=== PATIENT | female | born 1985 | race Caucasian/White ===

== ENCOUNTER 2020-07-13 08:38 | Outpatient (REF) | payer OTHER, SELFPAY ==
[2020-07-13 11:17] LABS: HBc Num1 0.08 S/CO (0.00-0.79); Hepatitis B Core Antibody Nonreactive (Nonreactive)
[2020-07-13 11:18] LABS: HIV AB/AG Nonreactive (Nonreactive); HIV Num 1 0.07 S/CO (0.00-0.99); ~HepC Num1 0.07 S/CO (0.00-0.79); ~Hepatitis C Antibody Nonreactive (Nonreactive)
[2020-07-13 11:20] LABS: Syphilis Screen Nonreactive (Nonreactive)
[2020-07-13 13:28] LABS: CT PCR NOT DETECTED (Not Detect.); NG PCR NOT DETECTED (Not Detect.)
[2020-07-14 09:32] LABS: BV Int Neg Control Negative (Negative); BV Int Pos Control Positive (Positive)
== END 2020-07-13 08:39 | disposition home or self-care (01) ==
LOC: HO.LAB 08:38
PROVIDERS: Visit Provider Advanced Practice Midwife
DX: Z20.2 Contact with and (suspected) exposure to infections with a predominantly sexual mode of transmission (principal); Z01.419 Encounter for gynecological examination (general) (routine) without abnormal findings
CPT/HCPCS: 86704; 86780; 86803; 87389; 87480; 87491; 87510; 87591; 87660

== ENCOUNTER → 2020-10-12 10:23 | Outpatient (BNVA) | payer OTHER, SELFPAY | PROVIDERS: Visit Provider Advanced Practice Midwife | DX: N63.0 Unspecified lump in unspecified breast (principal); N64.4 Mastodynia | CPT/HCPCS: 99212 ==

== ENCOUNTER 2020-10-13 08:53 | Outpatient (REF) | payer OTHER, SELFPAY ==
--- NOTE | ~2020-10-13 | MM_ITS ---
EXAMINATION: MM DIAGNOSTIC DIGITAL BREAST TOMOSYNTHESIS, BILATERAL US DIAGNOSTIC ULTRASOUND BREAST, BILATERAL CLINICAL INFORMATION: 35-year-old female with palpable fullness upper outer right breast for 5 days and regional imaging for one month. No known family history breast cancer. No prior breast imaging. The lifetime risk of breast cancer based on the Tyrer-Cuzick Model is 8%. COMPARISON: None (current study represents initial baseline exam). TECHNIQUE: Digital breast tomosynthesis is performed in both the craniocaudal and mediolateral oblique views along with computer-aided detection (CAD). Synthesized 2D images are generated from the tomosynthesis. Additional spot right ML x2 and spot left MLO views are obtained. Ultrasound left breast is targeted to the lower outer quadrant. Ultrasound right breast is targeted to the areas of clinical concern upper outer quadrant. BREASTS are imaged using grayscale imaging and color Doppler without and with harmonics. FINDINGS: The breasts are heterogeneously dense, which may obscure small masses (ACR BI-RADS breast composition Category c). There is nodular asymmetry approximately 0.9 cm posterior lower outer left breast best appreciated on the additional spot view. Margins are smooth, partly obscured. There is regional parenchymal asymmetry upper outer right breast without definable margins. Neither breast shows architectural abnormality or abnormal calcifications. The axilla and skin contours are unremarkable. There is no skin thickening or coarsening of the Tom's ligaments. Ultrasound right breast demonstrates bilobed simple cyst 9:00 position 4 cm from nipple, larger moiety measuring 3.0 x 2.0 cm and smaller moiety measuring 1.0 x 0.9 cm. There is no solid component. There is increased through-transmission of sound. No associated color flow. No solid mass or architectural abnormality. Ultrasound left breast demonstrates bilobed simple cyst 4:00 position 4 cm from nipple measuring 1.4 x 0.6 cm. There is increased through-transmission of sound and no associated color flow. No solid mass or architectural abnormality. Results are discussed with the patient at time of visit. MM/MM tomosynthesis diagnostic BI IMPRESSION: 1. No mammographic evidence of malignancy or inflammatory changes. 2. Bilateral simple cysts, right 3.0 cm and left 1.4 cm. ASSESSMENT: BI-RADS 2: Benign RECOMMENDATION: Routine annual mammography screening, beginning age 40, or earlier as clinical risk factors warrant. This patient's information was entered into a reminder system with a target due date for their next mammogram.
== END 2020-10-13 08:54 | disposition home or self-care (01) ==
LOC: HO.MAMMO 08:53
PROVIDERS: Visit Provider Advanced Practice Midwife
DX: N63.11 Unspecified lump in the right breast, upper outer quadrant (principal); N64.4 Mastodynia; Z71.2 Person consulting for explanation of examination or test findings
CPT/HCPCS: 76642; 77062; 77066

== ENCOUNTER 2021-12-13 07:14 | Outpatient (REF) | payer OTHER, SELFPAY ==
[2021-12-13 13:18] LABS: MANUAL DIFF FLAG NO
[2021-12-13 13:23] LABS: Basophils Absolute Auto 0.1 X10*3/uL (0.0-0.2); Basophils Percent Auto 0.9 % (0-2); Eosinophils Absolute Auto 0.1 X10*3/uL (0.0-0.4); Eosinophils Percent Auto 1.1 % (0-4); Hemoglobin 12.2 g/dl (12.0-16.0); Imm Gran Abs Auto 0.02 X10*3/uL (0.00-0.03); Imm Gran Pct Auto 0.3 % (0.0-0.4); Lymphocytes Absolute Auto 2.3 X10*3/uL (1.2-4.9); Lymphocytes Percent Auto 35.6 % (20-40); Mean Corpuscular Hemoglobin 28.4 pg (27.0-33.0); Mean Corpuscular Volume 86.2 fL (80.0-98.0); Mean Platelet Volume 10.8 fL (9.4-12.3); Monocytes Absolute Auto 0.6 X10*3/uL (0.1-1.2); Monocytes Percent Auto 9.8 % (2-11); Neutrophils Absolute Auto 3.4 x10*3/uL (2.0-8.3); Neutrophils Percent Auto 52.3 % (45-73); Platelet Count 275 X10*3/uL (160-400); Red Blood Count 4.29 X10*6/uL (4.20-5.50); Red Cell Distribution Width 12.8 % (11.0-16.0); White Blood Count 6.4 X10*3/uL (4.8-10.8)
[2021-12-13 13:36] LABS: Estimated Average Glucose 103 mg/dL; Hemoglobin A1c % 5.2 %
[2021-12-13 13:52] LABS: Alanine Aminotransferase 8 U/L (0-31); Albumin Level 4.1 g/dL (3.5-5.0); Alkaline Phosphatase 69 U/L (39-117); Anion Gap 8 (12-20); Aspartate Amino Transferase 17 U/L (5-31); Bilirubin Total 0.3 mg/dL (0.0-1.0); Blood Urea Nitrogen 11 mg/dL (9-16); Calcium 8.9 mg/dL (8.4-10.2); Carbon Dioxide 27 mmol/L (22-29); Chloride 106 mmol/L (96-108); Cholesterol 184 mg/dL; Estimated Glomerular Filt Rate > 60; Glucose Fasting 94 mg/dL (60-99); HDL Cholesterol 68 mg/dL; LDL Cholesterol Calculated 102 mg/dl; Potassium 3.7 mmol/L (3.3-5.1); Sodium 137 mmol/L (135-145); Total Protein 7.2 g/dL (6.5-8.0); Triglycerides 72 mg/dL
[2021-12-13 14:09] LABS: TSH reflex Free T4 1.64 uIU/mL (0.32-4.0)
[2021-12-13 14:25] LABS: Folate 17.1 ng/mL (> or = 4.0); Vitamin B12 404 pg/mL (200-900)
[2021-12-18 12:56] LABS: Vitamin D 25-OH, D2 <4 ng/mL; Vitamin D 25-OH, D3 19 ng/mL; Vitamin D 25-OH, Total 19 ng/mL (30-100)
== END 2021-12-13 07:15 | disposition home or self-care (01) ==
LOC: HO.LAB 07:14
PROVIDERS: PCP Nurse Practitioner Acute Care; Visit Provider Nurse Practitioner Acute Care
DX: Z00.00 Encounter for general adult medical examination without abnormal findings (principal)
CPT/HCPCS: 36415; 80053; 80061; 82306; 82607; 82746; 83036; 84443; 85025

== ENCOUNTER 2022-04-27 13:26 | Emergency (ER) | payer OTHER, SELFPAY ==
--- NOTE | ~2022-04-27 | XR_ITS ---
EXAMINATION: XR CHEST CLINICAL INFORMATION: Asthma with cough COMPARISON: Chest x-ray 08/29/2018 TECHNIQUE: 2 views of the chest were obtained. FINDINGS: The lungs are clear. No airspace consolidation, pleural effusion, or pneumothorax. The cardiomediastinal silhouette is within normal limits. No acute osseous injury. XR/XR chest 2V IMPRESSION: No acute pulmonary process.
[2022-04-27 14:00] VITALS: BP 130/84; PULSE 90; RESP 16; TEMP 36.5; O2SAT 100; BMI 27.1
[2022-04-27] MEDS: Ibuprofen 600 MG TABLET PO (14:04)
[2022-04-27] MEDS: Ondansetron ODT 4 MG TAB.RAPDIS TRANSLINGU (14:19)
[2022-04-27 14:53] LABS: IDNOW Serial# 9DD0AD1C; Influenza A Negative (Negative); Influenza B2 Negative (Negative)
[2022-04-27 14:54] LABS: COVID-19 Test Negative (Negative)
[2022-04-27 20:26] VITALS: BP 116/77; PULSE 98; RESP 17; TEMP 36.9; O2SAT 97
[2022-04-27 21:28] VITALS: BP 132/78; PULSE 86; RESP 23; O2SAT 99
--- NOTE | 2022-04-27 21:29 | ED_ITS ---
HPI - General Adult General Chief complaint: General Medical Stated complaint: Cough/Swollen eye/Headache Time Seen by Provider: 04/27/22 21:29 Source: patient Mode of arrival: ambulatory Limitations: no limitations History of Present Illness HPI narrative: Patient with history of asthma been coughing for last 1 week with mucoid phlegm also complaining of headache on the right side with cough using inhaler. Pat ient already been against COVID no fever no chills no other family member sick Related Data Previous Rx's Medication Instructions Recorded albuterol sulfate 90 mcg/actuation 2 puff inhalation Q4-6H PRN 11/11/21 aerosol inhaler (ProAir HFA) shortness of breath or wheezing #8.5 grams calcitriol 0.25 mcg capsule 0.25 mcg PO DAILY #30 caps 12/18/21 albuterol sulfate 90 mcg/actuation 2 puff inhalation Q4-6H PRN 04/27/22 aerosol inhaler (ProAir HFA) shortness of breath or wheezing #8.5 grams codeine 10 mg-guaifenesin 100 mg/5 10 ml PO Q6H PRN cough #237 mL 04/27/22 mL oral liquid doxycycline hyclate 100 mg tablet 100 mg PO BID #20 tabs 04/27/22 prednisone 20 mg tablet 40 mg PO DAILY #10 tabs 04/27/22 Allergies Allergy/AdvReac Type Severity Reaction Status Date / Time No Known Allergies Allergy Verified 11/11/21 16:39 Review of Systems Review of Systems: Yes all other systems are reviewed and are negative PMFSH Past Medical History Medical History Asthma Seasonal allergies Surgical History History of removal of ovarian cyst History of tubal ligation Family History Family History Father Hypertension Mother Chronic mental illness Hypertension Diabetes Mental health disorder Maternal Aunt Ovarian cancer Son Asthma Social History Social History Housing: House Alcohol intake: never Patient Tobacco Use Status: Never used Tobacco e-Cigarette/Vaping Use: Never Used Second Hand Smoke Exposure: No Advance Directives: No service: No Current occupational status: employed Gender identity: Female Cognitive needs: No Hearing needs: No Vision needs: No Physical Exam ED Vital Signs: Vital Signs - 24 hr 04/27/22 14:00 04/27/22 20:26 04/27/22 21:28 Temperature 97.7 F 98.5 F Pulse Rate 90 98 86 Respiratory Rate 16 17 23 H Blood Pressure 130/84 116/77 132/78 Pulse Oximetry 100 97 99 Oxygen Delivery Method Room Air Room Air Room Air 04/27/22 22:04 Temperature Pulse Rate 95 Respiratory Rate 16 Blood Pressure Pulse Oximetry Oxygen Delivery Method BMI result Body Mass Index 27.1 Appearance: Alert. Oriented X3. No acute distress. ENT: Pharynx normal. Oral Mucosa moist tympanic membrane intact Neck: Normal inspection. Neck supple. CVS: Normal heart rate and rhythm. Pulses normal. Respiratory: No respiratory distress. Equal air entry bilateral, prolonged expiration Abdomen: Soft and nontender. Bowel sounds are present, no mass palpable, no CVA tenderness Skin: Skin warm and dry. Normal skin color. Normal skin turgor. Extremities: No lower extremity edema. No calf tenderness Neuro: Oriented X 3. No motor deficit. Medical Decision Making MDM Narrative Medical decision making narrative: Patient has asthmatic bronchitis chest x-ray negative COVID negative discharge patient home on doxycycline and prednisone Lab Data Lab results reviewed: Yes I reviewed the patient's lab results. Labs: Lab Results 04/27/22 04/27/22 Range/Units 14:15 14:15 COVID-19 (ROLANDO) Negative (Negative) COVID-19 Clin Com See Note Influenza Type A (SHEY) Negative (Negative) Influenza Type B (SHEY) Negative (Negative) Influenza A & B Note See Note Discharge Plan Discharge Clinical Impression: Acute asthmatic bronchitis Patient Disposition: Home, Self-Care Instructions: Acute Bronchitis (ED) Additional Instructions: Continue use inhaler every 4-6 hours Prednisone and cough drops as prescribed Antibiotic as prescribed Follow with PCP if not better Prescriptions: New codeine-guaifenesin 10-100 mg/5 mL liquid 10 ml PO Q6H PRN (Reason: cough) Qty: 237 0RF prednisone 20 mg tablet 40 mg PO DAILY Qty: 10 0RF albuterol sulfate [ProAir HFA] 90 mcg/actuation HFA aerosol inhaler 2 puff inhalation Q4-6H PRN (Reason: shortness of breath or wheezing) Qty: 8.5 0RF doxycycline hyclate 100 mg tablet 100 mg PO BID Qty: 20 0RF No Action calcitriol 0.25 mcg capsule 0.25 mcg PO DAILY Qty: 30 3RF albuterol sulfate [ProAir HFA] 90 mcg/actuation HFA aerosol inhaler 2 puff inhalation Q4-6H PRN (Reason: shortness of breath or wheezing) Qty: 8.5 2RF Interventions: ED Discharge Assessment Last Done: 04/27/22 22:42 Discharge Date/Time: 04/27/22 22:44
[2022-04-27 22:04] VITALS: PULSE 95; RESP 16; O2SAT 100
[2022-04-27] MEDS: Albuterol/Iprat 2.5/0.5MG 3 ML AMPUL.NEB INHALE (22:04)
[2022-04-27] MEDS: Albuterol Sulfate (0.083%) 2.5 MG/3 ML VIAL.NEB INHALE (22:04)
[2022-04-27] MEDS: Benzonatate 100 MG CAPSULE 200 MG PO (22:35)
[2022-04-27] MEDS: predniSONE 20 MG TABLET 40 MG PO (22:35)
== END 2022-04-27 22:44 | disposition home or self-care (01) ==
PROVIDERS: Emergency Provider Internal Medicine; PCP Nurse Practitioner Acute Care
DX: J45.909 Unspecified asthma, uncomplicated (principal); Z20.822 Contact with and (suspected) exposure to COVID-19; Z79.899 Other long term (current) drug therapy
CPT/HCPCS: 71046; 87502; 87635; 94640; 99284

== ENCOUNTER 2022-07-22 22:17 | Emergency (ER) | payer OTHER, SELFPAY ==
[2022-07-22 22:25] VITALS: BP 120/77; PULSE 78; RESP 16; TEMP 36.8; O2SAT 99; BMI 26.5
[2022-07-23 00:39] VITALS: BP 104/66; PULSE 90; RESP 16; TEMP 36.3; O2SAT 100
--- NOTE | 2022-07-23 01:13 | ED.GENADULT ---
HPI - General Adult General Chief complaint: General Medical Stated complaint: allergic reaction? cant swallow Time Seen by Provider: 07/23/22 00:24 Source: patient Mode of arrival: ambulatory Limitations: no limitations History of Present Illness HPI narrative: 37-year-old female who presents emergency department for evaluation of rash on her neck and chest for approximately 1/2 weeks with a rash spreading to her area x5 days. She also state that over the past 2 days her eyes have been red, watery drainage fluid. The patient states that her last 2-3 days she has had dysphagia. She states she swallows food she feels like food gets stuck in this causes her to vomit. She denied fever, chills, rhinorrhea. She states she has a cough which she attributes this to her asthma. She denied chest pain shortness of breath. She denied nausea but does have vomiting after eating. She denied abdominal pain, frequency, urgency or dysuria. Related Data Previous Rx's Medication Instructions Recorded albuterol sulfate 90 mcg/actuation 2 puff inhalation Q4-6H PRN 11/11/21 aerosol inhaler (ProAir HFA) shortness of breath or wheezing #8.5 grams calcitriol 0.25 mcg capsule 0.25 mcg PO DAILY #30 caps 12/18/21 albuterol sulfate 90 mcg/actuation 2 puff inhalation Q4-6H PRN 04/27/22 aerosol inhaler (ProAir HFA) shortness of breath or wheezing #8.5 grams codeine 10 mg-guaifenesin 100 mg/5 10 ml PO Q6H PRN cough #237 mL 04/27/22 mL oral liquid erythromycin 5 mg/gram (0.5 %) eye 0.5 inch ophthalmic (eye) QID #3.5 05/31/22 ointment grams cephalexin 250 mg/5 mL oral 250 mg (5 mL) PO TID 7 days #105 mL 07/23/22 suspension nystatin 100,000 unit/gram topical 1 appl topical BID 14 days #30 07/23/22 ointment grams prednisolone 15 mg/5 mL oral 45 mg (15 mL) PO DAILY 7 days #110 07/23/22 solution mL Allergies Allergy/AdvReac Type Severity Reaction Status Date / Time No Known Allergies Allergy Verified 05/31/22 15:03 Review of Systems Review of Systems: Yes all other systems are reviewed and are negative PMFSH Past Medical History [facility] Narrative: Social history: Denies tobacco, alcohol and drug use. Medical History (Updated 07/23/22 @ 03:05 by Camden Bauman MD) Asthma Breast lump on left side at 5 o'clock position Hordeolum external Seasonal allergies Surgical History History of removal of ovarian cyst History of tubal ligation Family History Family History (Updated 05/31/22 @ 15:18 by PAO Kaminski) Father Hypertension Mother Chronic mental illness Hypertension Diabetes Mental health disorder Maternal Aunt Ovarian cancer Son Asthma Maternal Grandmother Breast cancer Social History Social History Housing: House Alcohol intake: current Alcohol intake frequency: holidays/special occasions only Alcohol type: wine Patient Tobacco Use Status: Never used Tobacco Smoked in Last 30 Days: No e-Cigarette/Vaping Use: Never Used Second Hand Smoke Exposure: No Use of substances other than those prescribed or required for medical reasons: No Advance Directives: No Advance Directives Information Provided: Yes Patient : No service: No Current occupational status: employed Gender identity: Female Cognitive needs: No Hearing needs: No Vision needs: No Physical Exam ED Vital Signs: Vital Signs - 24 hr 07/22/22 22:25 07/23/22 00:39 07/23/22 02:11 Temperature 98.2 F 97.3 F 97.6 F Pulse Rate 78 90 71 Respiratory Rate 16 16 18 Blood Pressure 120/77 104/66 122/81 Pulse Oximetry 99 100 100 Oxygen Delivery Method Room Air Room Air Room Air BMI result Body Mass Index 26.5 Const General: cooperative and no acute distress Orientation/consciousness: oriented to person and oriented to place Limitations: no limitations HENMT Head: Yes normal to inspection, Yes normocephalic and Yes atraumatic Ears: external ears normal General nose exam: Normal external nose present Face and sinus: Yes normal facial exam Mouth: Normal oral and palatal mucosa present Throat: Yes posterior oropharynx normal Eyes Other: Patient has bilateral conjunctiva/sclera erythema with no purulent exudate, pupils were equal round reactive light, extraocular muscles are intact Pupils: Equal, round and reactive pupils present Neck Neck: Yes normal visual inspection, Yes no lymphadenopathy, Yes trachea midline and Yes supple Chest Chest palpation & inspection: normal inspection of the chest and normal palpation of entire chest wall Resp Effort & Inspection: normal respiratory effort and able to speak in complete sentences Auscultation: clear to auscultation bilaterally Cardio Rate: regular rate Rhythm: regular rhythm Heart sounds: S1 normal heart sound present, S2 normal heart sound present and no murmurs GI Inspection: Yes normal to inspection Palpation (GI): Soft to palpation, nontender and no guarding Auscultation: normal bowel sounds General: Yes no CVA tenderness Back/Spine/Pelvis Back: no CVA tenderness Skin Other: The patient has an erythematous, nonblanching, scaly rash on her chest, nasal area. The rash is not warm to the touch, it is slightly tender to palpation. Neuro General: oriented to person and oriented to place Cranial nerves: Yes CN's II-XII intact bilaterally and Yes Equal, round and reactive pupils present Cognition (Neuro): normal cognition Motor exam (neuro): 5/5 motor strength present throughout Extrem General: Yes normal to inspection Psych Appearance: grossly normal Speech and movement: Normal speech and movement present Affect: normal affect Attitude: cooperative Thought process: Normal thought process present Thought content: Normal thought content present Course Course Course Narrative: 37-year-old female who presents emergency department for evaluation of a rash on her neck x1 1/2 weeks, with a rash then developing in the perinasal area x5 days with dysphagia x2 days which triggers vomiting every time she eats. Patient also developed erythema of her sclera and conjunctiva with discharge from both eyes x2 days. Patient's vital signs were normal. Patient's examination did reveal a erythematous scaly, slightly tender, rash to her neck, perinasal area and bilateral conjunctiva and scleral erythema. The differential includes but is not limited to cellulitis, fungal infection, vasculitis. I ordered a laboratory evaluation to include CBC, CMP, ESR, CRP, CK, PT/INR, lactic acid, lipase, quantitative beta-hCG, influenza, COVID-19, rapid strep. Patient was given Toradol 15 mg IV for her throat pain and Zofran 4 mg IV. I also ordered normal saline x1 L. 0300: Laboratory evaluation: Anemia with an H&H of 11.2 and 33.7 with a normal MCV. Sodium low 133. ESR elevated 27. CRP elevated 1.08. Strep and influenza negative. COVID-19 positive. Given the relatively low ESR and CRP I do not think that this is vasculitis causing her symptoms. The patient's COVID-19 is positive but he did not think that this is the cause of her symptoms. Patient either has a cellulitis or fungal skin infection. I did discuss this with her. Patient will be treated with nystatin ointment twice a day for 14 days to her face and neck. She will also be started on Keflex 500 mg 3 times a day for 7 days. Patient will also be treated with prednisolone 45 mg once a day for 7 days. She was given printed and verbal instructions and discharged home. I did tell her that I do not know the exact cause of her symptoms then if she is getting worse she should return to the emergency department for re-evaluation. She was given a work note for 1 week. Medications Administered Discontinued Medications Generic Name Dose Route Start Last Admin Trade Name Freq PRN Reason Stop Dose Admin Sodium Chloride 1,000 mls @ 999 mls/hr 07/23/22 01:14 07/23/22 01:55 Ns IV 07/23/22 02:14 999 mls/hr .Q1H1M STA Administration Medical Decision Making Lab Data Result diagrams: 07/23/22 01:49 07/23/22 01:49 Labs: Lab Results 07/23/22 07/23/22 07/23/22 Range/Units 01:20 01:20 01:49 WBC 8.7 (4.8-10.8) X10*3/uL RBC 4.04 L (4.20-5.50) X10*6/uL Hgb 11.2 L (12.0-16.0) g/dl Hct 33.7 L (37.0-47.0) % MCV 83.4 (80.0-98.0) fL MCH 27.7 (27.0-33.0) pg MCHC 33.2 (31.0-35.0) g/dl RDW 14.6 (11.0-16.0) % Plt Count 305 (160-400) X10*3/uL MPV 10.8 (9.4-12.3) fL Immature Gran % (Auto) 0.2 (0.0-0.4) % Neut % (Auto) 57.0 (45-73) % Lymph % (Auto) 25.5 (20-40) % Sawyer % (Auto) 12.3 H (2-11) % Eos % (Auto) 4.2 H (0-4) % Baso % (Auto) 0.8 (0-2) % Lymph # (Auto) 2.2 (1.2-4.9) X10*3/uL Sawyer # (Auto) 1.1 (0.1-1.2) X10*3/uL Eos # (Auto) 0.4 (0.0-0.4) X10*3/uL Baso # (Auto) 0.1 (0.0-0.2) X10*3/uL Abs Immat Gran (auto) 0.02 (0.00-0.03) X10*3/uL Absolute Neuts (auto) 4.9 (2.0-8.3) x10*3/uL Absolute Nucleated RBC 0.000 (0.0-0.012) X10*3/uL Nucleated RBC % (auto) 0.0 (0.0-0.2) /100WBC ESR (0-20) MM/HR PT (10.0-13.1) SEC INR (0.9-1.1) APTT (26.0-36.4) SEC Sodium (135-145) mmol/L Potassium (3.3-5.1) mmol/L Chloride (96-108) mmol/L Carbon Dioxide (22-29) mmol/L Anion Gap (12-20) BUN (9-16) mg/dL Creatinine (0.5-1.4) mg/dL Estim Creat Clear Calc Estimated GFR Random Glucose (60-115) mg/dL Lactic Acid (0.5-2.0) mmol/L Calcium (8.4-10.2) mg/dL Total Bilirubin (0.0-1.0) mg/dL AST (5-31) U/L ALT (0-31) U/L Alkaline Phosphatase (39-117) U/L Total Creatine Kinase (26-140) U/L C-Reactive Protein (< or = 0.50) mg/dL Total Protein (6.5-8.0) g/dL Albumin (3.5-5.0) g/dL Lipase (8-78) U/L Beta HCG, Quant mIU/mL Urine Color Urine Appearance Urine pH (5.0-9.0) Ur Specific Stryker (1.005-1.025) Urine Protein (Neg-Trace) mg/dL Urine Glucose (UA) (Negative) mg/dL Urine Ketones (Negative) mg/dL Urine Blood (Negative) Urine Nitrite (Negative) Ur Leukocyte Esterase (Negative) Urine RBC (0-2) /HPF Urine WBC (0-5) /HPF Ur Squamous Epith Cells (0-2) /HPF Urine Bacteria (None Seen) Hyaline Casts (0-2) /LPF COVID-19 (ROLANDO) Positive A (Negative) COVID-19 Clin Com See Note Influenza Type A (SHEY) Negative (Negative) Influenza Type B (SHEY) Negative (Negative) Influenza A & B Note See Note S. pyogenes GrpA SHEY (Negative) 07/23/22 07/23/22 07/23/22 Range/Units 01:49 01:49 01:49 WBC (4.8-10.8) X10*3/uL RBC (4.20-5.50) X10*6/uL Hgb (12.0-16.0) g/dl Hct (37.0-47.0) % MCV (80.0-98.0) fL MCH (27.0-33.0) pg MCHC (31.0-35.0) g/dl RDW (11.0-16.0) % Plt Count (160-400) X10*3/uL MPV (9.4-12.3) fL Immature Gran % (Auto) (0.0-0.4) % Neut % (Auto) (45-73) % Lymph % (Auto) (20-40) % Sawyer % (Auto) (2-11) % Eos % (Auto) (0-4) % Baso % (Auto) (0-2) % Lymph # (Auto) (1.2-4.9) X10*3/uL Sawyer # (Auto) (0.1-1.2) X10*3/uL Eos # (Auto) (0.0-0.4) X10*3/uL Baso # (Auto) (0.0-0.2) X10*3/uL Abs Immat Gran (auto) (0.00-0.03) X10*3/uL Absolute Neuts (auto) (2.0-8.3) x10*3/uL Absolute Nucleated RBC (0.0-0.012) X10*3/uL Nucleated RBC % (auto) (0.0-0.2) /100WBC ESR 27 H (0-20) MM/HR PT 12.4 (10.0-13.1) SEC INR 1.1 (0.9-1.1) APTT 28.0 (26.0-36.4) SEC Sodium 133 L (135-145) mmol/L Potassium 3.6 (3.3-5.1) mmol/L Chloride 101 (96-108) mmol/L Carbon Dioxide 26 (22-29) mmol/L Anion Gap 10 L (12-20) BUN 16 (9-16) mg/dL Creatinine 0.82 (0.5-1.4) mg/dL Estim Creat Clear Calc 82.7 Estimated GFR > 60 Random Glucose 106 (60-115) mg/dL Lactic Acid (0.5-2.0) mmol/L Calcium 8.6 (8.4-10.2) mg/dL Total Bilirubin < 0.2 (0.0-1.0) mg/dL AST 14 (5-31) U/L ALT 9 (0-31) U/L Alkaline Phosphatase 85 (39-117) U/L Total Creatine Kinase 86 (26-140) U/L C-Reactive Protein 1.08 H (< or = 0.50) mg/dL Total Protein 7.0 (6.5-8.0) g/dL Albumin 4.1 (3.5-5.0) g/dL Lipase 29 (8-78) U/L Beta HCG, Quant < 2 mIU/mL Urine Color Urine Appearance Urine pH (5.0-9.0) Ur Specific Stryker (1.005-1.025) Urine Protein (Neg-Trace) mg/dL Urine Glucose (UA) (Negative) mg/dL Urine Ketones (Negative) mg/dL Urine Blood (Negative) Urine Nitrite (Negative) Ur Leukocyte Esterase (Negative) Urine RBC (0-2) /HPF Urine WBC (0-5) /HPF Ur Squamous Epith Cells (0-2) /HPF Urine Bacteria (None Seen) Hyaline Casts (0-2) /LPF COVID-19 (ROLANDO) (Negative) COVID-19 Clin Com Influenza Type A (SHEY) (Negative) Influenza Type B (SHEY) (Negative) Influenza A & B Note S. pyogenes GrpA SHEY (Negative) 07/23/22 07/23/22 07/23/22 Range/Units 01:49 01:49 02:00 WBC (4.8-10.8) X10*3/uL RBC (4.20-5.50) X10*6/uL Hgb (12.0-16.0) g/dl Hct (37.0-47.0) % MCV (80.0-98.0) fL MCH (27.0-33.0) pg MCHC (31.0-35.0) g/dl RDW (11.0-16.0) % Plt Count (160-400) X10*3/uL MPV (9.4-12.3) fL Immature Gran % (Auto) (0.0-0.4) % Neut % (Auto) (45-73) % Lymph % (Auto) (20-40) % Sawyer % (Auto) (2-11) % Eos % (Auto) (0-4) % Baso % (Auto) (0-2) % Lymph # (Auto) (1.2-4.9) X10*3/uL Sawyer # (Auto) (0.1-1.2) X10*3/uL Eos # (Auto) (0.0-0.4) X10*3/uL Baso # (Auto) (0.0-0.2) X10*3/uL Abs Immat Gran (auto) (0.00-0.03) X10*3/uL Absolute Neuts (auto) (2.0-8.3) x10*3/uL Absolute Nucleated RBC (0.0-0.012) X10*3/uL Nucleated RBC % (auto) (0.0-0.2) /100WBC ESR (0-20) MM/HR PT (10.0-13.1) SEC INR (0.9-1.1) APTT (26.0-36.4) SEC Sodium (135-145) mmol/L Potassium (3.3-5.1) mmol/L Chloride (96-108) mmol/L Carbon Dioxide (22-29) mmol/L Anion Gap (12-20) BUN (9-16) mg/dL Creatinine (0.5-1.4) mg/dL Estim Creat Clear Calc Estimated GFR Random Glucose (60-115) mg/dL Lactic Acid 1.1 (0.5-2.0) mmol/L Calcium (8.4-10.2) mg/dL Total Bilirubin (0.0-1.0) mg/dL AST (5-31) U/L ALT (0-31) U/L Alkaline Phosphatase (39-117) U/L Total Creatine Kinase (26-140) U/L C-Reactive Protein (< or = 0.50) mg/dL Total Protein (6.5-8.0) g/dL Albumin (3.5-5.0) g/dL Lipase (8-78) U/L Beta HCG, Quant mIU/mL Urine Color Yellow Urine Appearance Clear Urine pH 6.5 (5.0-9.0) Ur Specific Stryker 1.025 (1.005-1.025) Urine Protein Negative (Neg-Trace) mg/dL Urine Glucose (UA) Negative (Negative) mg/dL Urine Ketones Negative (Negative) mg/dL Urine Blood Moderate (2+) H (Negative) Urine Nitrite Negative (Negative) Ur Leukocyte Esterase Negative (Negative) Urine RBC >20 H (0-2) /HPF Urine WBC 0-5 (0-5) /HPF Ur Squamous Epith Cells 0-2 (0-2) /HPF Urine Bacteria None Seen (None Seen) Hyaline Casts 0-2 (0-2) /LPF COVID-19 (ROLANDO) (Negative) COVID-19 Clin Com Influenza Type A (SHEY) (Negative) Influenza Type B (SHEY) (Negative) Influenza A & B Note S. pyogenes GrpA SHEY Negative (Negative) Discharge Plan Discharge Clinical Impression: Cellulitis, Cutaneous fungal infection, COVID-19 virus infection Patient Disposition: Home, Self-Care Instructions: Cellulitis (ED), Skin Yeast Infection (ED), COVID-19 (Coronavirus Disease 2019) (ED) Additional Instructions: Your blood work did reveal mild anemia, slight elevation in your inflammatory markers (ESR and CRP) and a positive COVID-19 test. At this time, I do not know the cause of your symptoms but I am going to treat you for a fungal skin infection and possibly a bacterial skin infection. Take Keflex (cephalexin) 250 mg per 5 mL , take 10 mL 3 times a day for 7 days. This will treat a bacterial skin infection. And use nystatin ointment twice a day for 2 weeks on the rash on your chest and on your face. This will treat a fungal infection. Take prednisolone 15 mg per 5 mL, 15 mL once a day for 7 days. Follow-up with your doctor in 2 days. Please return to the emergency department if your symptoms get worse or if you develop any symptoms that are concerning to you. Prescriptions: New prednisolone 15 mg/5 mL solution 45 mg PO DAILY 7 Days Qty: 110 0RF cephalexin 250 mg/5 mL suspension for reconstitution 250 mg PO TID 7 Days Qty: 105 0RF nystatin 100,000 unit/gram ointment 1 appl topical BID 14 Days Qty: 30 1RF Rx Instructions: Apply to rash on chest and face No Action calcitriol 0.25 mcg capsule 0.25 mcg PO DAILY Qty: 30 3RF codeine-guaifenesin 10-100 mg/5 mL liquid 10 ml PO Q6H PRN (Reason: cough) Qty: 237 0RF albuterol sulfate [ProAir HFA] 90 mcg/actuation HFA aerosol inhaler 2 puff inhalation Q4-6H PRN (Reason: shortness of breath or wheezing) Qty: 8.5 0RF erythromycin 5 mg/gram (0.5 %) ointment 0.5 inch ophthalmic (eye) QID Qty: 3.5 0RF Rx Instructions: apply 4 times a day to right eye for 1 week. albuterol sulfate [ProAir HFA] 90 mcg/actuation HFA aerosol inhaler 2 puff inhalation Q4-6H PRN (Reason: shortness of breath or wheezing) Qty: 8.5 2RF
[2022-07-23 01:38] LABS: COVID-19 Test Positive (Negative); IDNOW Serial# 16C4AD1C
[2022-07-23 01:41] LABS: IDNOW Serial# BCCEAD1C; Influenza A Negative (Negative); Influenza B2 Negative (Negative)
[2022-07-23 01:55] LABS: MANUAL DIFF FLAG NO
[2022-07-23] MEDS: 0.9 % Sodium Chloride 1,000 ML 999 ML IV (01:55)
[2022-07-23 01:57] LABS: Basophils Absolute Auto 0.1 X10*3/uL (0.0-0.2); Basophils Percent Auto 0.8 % (0-2); Eosinophils Absolute Auto 0.4 X10*3/uL (0.0-0.4); Eosinophils Percent Auto 4.2 % (0-4); Hematocrit 33.7 % (37.0-47.0); Hemoglobin 11.2 g/dl (12.0-16.0); Imm Gran Abs Auto 0.02 X10*3/uL (0.00-0.03); Imm Gran Pct Auto 0.2 % (0.0-0.4); Lymphocytes Absolute Auto 2.2 X10*3/uL (1.2-4.9); Lymphocytes Percent Auto 25.5 % (20-40); Mean Corpuscular HGB Conc 33.2 g/dl (31.0-35.0); Mean Corpuscular Hemoglobin 27.7 pg (27.0-33.0); Mean Corpuscular Volume 83.4 fL (80.0-98.0); Mean Platelet Volume 10.8 fL (9.4-12.3); Monocytes Absolute Auto 1.1 X10*3/uL (0.1-1.2); Monocytes Percent Auto 12.3 % (2-11); Neutrophils Absolute Auto 4.9 x10*3/uL (2.0-8.3); Platelet Count 305 X10*3/uL (160-400); Red Blood Count 4.04 X10*6/uL (4.20-5.50); Red Cell Distribution Width 14.6 % (11.0-16.0); White Blood Count 8.7 X10*3/uL (4.8-10.8)
[2022-07-23 02:03] LABS: INTERNATIONAL NORM RATIO 1.1 (0.9-1.1); Prothrombin Time 12.4 SEC (10.0-13.1)
[2022-07-23 02:06] LABS: Strep A Nucleic Acid Negative (Negative)
[2022-07-23 02:08] LABS: Appearance Urine Clear; Color Urine Yellow; Glucose Urine UA Negative (Negative); Leukocyte Esterase Urine Negative (Negative); Nitrite Urine Negative (Negative); PH 6.5 (5.0-9.0); Specific Gravity - Urine 1.025 (1.005-1.025); UMIC TRIGGER UACC YES; Urine Blood Moderate (2+) (Negative); Urine Ketones Negative (Negative); Urine Protein Negative (Neg-Trace)
[2022-07-23 02:08] LABS: Lactic Acid 1.1 mmol/L (0.5-2.0)
[2022-07-23 02:11] VITALS: BP 122/81; PULSE 71; RESP 18; TEMP 36.4; O2SAT 100
[2022-07-23 02:13] LABS: Bacteria Urine None Seen (None Seen); Hyaline Casts Urine 0-2 /LPF (0-2); RBC Urine >20 /HPF (0-2); Squamous Epithelial Cell Urine 0-2 /HPF (0-2); WBC Urine 0-5 /HPF (0-5)
[2022-07-23 02:27] LABS: Alanine Aminotransferase 9 U/L (0-31); Albumin Level 4.1 g/dL (3.5-5.0); Alkaline Phosphatase 85 U/L (39-117); Anion Gap 10 (12-20); Aspartate Amino Transferase 14 U/L (5-31); Bilirubin Total < 0.2 mg/dL (0.0-1.0); Blood Urea Nitrogen 16 mg/dL (9-16); C Reactive Protein 1.08 mg/dL (< or = 0.50); Calcium 8.6 mg/dL (8.4-10.2); Carbon Dioxide 26 mmol/L (22-29); Chloride 101 mmol/L (96-108); Creatinine Clr Calc Pharmacy 82.7; Estimated Glomerular Filt Rate > 60; Glucose Random 106 mg/dL (60-115); HCG Quantitative < 2 mIU/mL; Lipase 29 U/L (8-78); Potassium 3.6 mmol/L (3.3-5.1); Sodium 133 mmol/L (135-145)
[2022-07-23 02:38] LABS: Erythrocyte Sedimentation Rate 27 MM/HR (0-20)
[2022-07-23] MEDS: ondansetron HCL 4 MG/2 ML VIAL IVPUSH (02:48)
[2022-07-23] MEDS: Ketorolac Tromethamine 15 MG/ML VIAL IVPUSH (02:48)
[2022-07-23] MEDS: methylPREDNISolone Sod Succ 125 MG/2 ML VIAL 60 MG IVPUSH (03:10)
== END 2022-07-23 04:12 | disposition home or self-care (01) ==
PROVIDERS: Emergency Provider Emergency Medicine Emergency Medical Services
DX: U07.1 COVID-19 (principal); B49 Unspecified mycosis; J34.0 Abscess, furuncle and carbuncle of nose; L03.313 Cellulitis of chest wall; H10.9 Unspecified conjunctivitis; R47.02 Dysphasia; R11.10 Vomiting, unspecified
CPT/HCPCS: 80053; 81001; 82550; 83605; 83690; 84702; 85025; 85610; 85652; 85730; 86140; 87040; 87502; 87635; 87651; 96361; 96374; 96375; 99284; J1885; J2405; J2930

== ENCOUNTER 2023-03-03 08:34 | Outpatient (AMB) | payer OTHER, SELFPAY ==
[2023-03-03 08:36] VITALS: BP 110/74; PULSE 73; O2SAT 99; BMI 26.3
--- NOTE | 2023-03-03 08:36 | MHC.PC.OV ---
Vital Signs 03/03/23 08:36 Height 5 ft 2 in Weight 144 lb BMI 26.3 BP 110/74 Blood Pressure Location Lt brachial Position Sitting Pulse 73 Pulse Source Pulse Oximeter Temp Source Skin Pulse Oximetry (%) 99 Oxygen Delivery Method Room Air Intake Visit Reasons: PE Intake Note: Patient is here today for a physical. 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 Allergies No Known Allergies Allergy (Verified 03/03/23 08:46) Medication List - Last Reconciled 03/03/23 by PAO Pop albuterol sulfate 90 mcg/actuation (ProAir HFA) 2 puffs inhalation Q4-6H PRN nystatin 1 appl topical BID 14 days Tobacco use date assessed: 03/03/23 Dental Screening Dental Screen Date: 03/03/23 Did you have a dental visit in the last 12 months?: Yes Did you have a dental problem in the last 6 months where you did not have access to dental care?: No Was dental information given to patient?: Patient has dentist HPI PE HPI Details Patient is a 38-year-old female presents today for physical exam. Medical history significant for allergic rhinitis, asthma. Patient reports that asthma is stable with albuterol inhaler p.r.n.. She reports normal Pap smear in 2019, she has an upcoming appointment with [facility]. She will call for an eye exam. Today we discussed patient's need for tetanus vaccine. Patient would like to hold off on pneumonia vaccine. Patient did bring a form for her work physical exam, she needs screening for TB - will order T spot and MMR vaccine-will check antibodies. In addition, patient reports left 5th toe tender area for long time now, no injury. Patient denies shortness of breath or chest pain. [facility] Medical History Asthma Breast lump on left side at 5 o'clock position COVID-19 virus infection Hordeolum external Seasonal allergies Surgical History History of removal of ovarian cyst History of tubal ligation Family History Father Hypertension Mother Chronic mental illness Hypertension Diabetes Mental health disorder Maternal Aunt Ovarian cancer Son Asthma Maternal Grandmother Breast cancer Social History Housing: House Alcohol intake: current Alcohol intake frequency: holidays/special occasions only Alcohol type: wine Patient Tobacco Use Status: Never used Tobacco e-Cigarette/Vaping Use: Never Used Second Hand Smoke Exposure: No service: No Current occupational status: employed Gender identity: Female Cognitive needs: No Hearing needs: No Vision needs: No Female Reproductive History Menstrual Age of Menarche: 13 Questionnaire PHQ-9 Over the last 2 weeks, how often have you been bothered by any of the following problems? 1. Little interest or pleasure in doing things: not at all 2. Feeling down, depressed, or hopeless: not at all 3. Trouble falling or staying asleep, or sleeping too much: not at all 4. Feeling tired or having little energy: not at all 5. Poor appetite or overeating: not at all 6. Feeling bad about yourself - or that you are a failure or have let yourself or your family down: not at all 7. Trouble concentrating on things, such as reading the newspaper or watching television: not at all 8. Moving or speaking so slowly that other people could have noticed. Or the opposite - being so fidgety or restless that you have been moving around a lot more than usual: not at all 9. Thoughts that you would be better off or of hurting yourself in some way: not at all Total score: 0 Depression Screening Interpretation: Negative 45953 - PHQ-9 Billing: Yes Source: Developed by Drs. Shahab Palomino, Neha Way, Pedro Francois and colleagues, with an educational rachel from [employer]. Thrive Questionnaire Date Thrive assessed: 03/03/23 I am a: Patient What is your living situation today?: I have a steady place to live Within the past 12 months, did the food you bought not last and you didn't have the money to get more?: Never true Within the past 12 months, did you worry whether your food would run out before you got money to buy more?: Never true Do you have trouble paying for medicines?: No Do you have trouble getting transportation to medical appointments?: No Do you have trouble paying your heating and electricity bill?: No Do you have trouble taking care of your child, family member or friend?: No Do you have trouble with day-to-day activities such as bathing, preparing meals, shopping, managing finances, etc.?: No Are you currently unemployed and looking for a job?: No Are you interested in more education?: No Currently or been in a relationship where the following occur: no concerns reported AUDIT C Alcohol Use Questionnaire (AUDIT-C) 1. How often do you have a drink containing alcohol?: Never 3. How often do you have six or more drinks on one occasion?: Never Total Score: 0 Score Reviewed/Action Taken: No JAY-7 AMB Questionnaire JAY-7 Date JAY - 7 assessed: 03/03/23 Feeling nervous, anxious, or on edge: 0 = Not at all Not being able to stop or control worryin = Not at all Worrying too much about different things: 0 = Not at all Trouble relaxin = Not at all Being so restless that it is hard to sit still: 0 = Not at all Becoming easily annoyed or irritable: 0 = Not at all Feeling afraid as if something awful might happen: 0 = Not at all Total JAY-7 score (0-4 normal; 5-9 mild; 10-14 moderate; 15-21 severe): 0 Source: Developed by Drs. Shahab Palomino, Neha Way, Pedro Francois and colleagues, with an educational rachel from [employer]. JAY-7 Assessment Billing JAY-7 Assessment Tool: JAY-7 Assessment 41395 Review of Systems Const Denies body aches, Denies chills, Denies fever(s) and Denies headache(s) Eyes Denies change in vision ENT Denies dizziness, Denies otalgia, Denies headache(s), Denies nasal discharge, Denies sinus pain and Denies sore throat Card Denies chest pain, Denies edema, Denies lightheadedness and Denies dyspnea Resp Denies cough and Denies dyspnea GI Denies constipation, Denies diarrhea, Denies nausea and Denies vomiting Denies dysuria Musc Reports as per HPI and Denies myalgias Skin/Breast Denies rash Neuro Denies dizziness and Denies headache(s) Physical exam (Primary Care) Vital Signs: Last Vital Signs Pulse 73 03/03/23 08:36 BP 110/74 03/03/23 08:36 Pulse Ox 99 03/03/23 08:36 Oxygen Delivery Method Room Air 03/03/23 08:36 BMI result Body Mass Index 26.3 Tobacco/Smoking Status: Tobacco use Status Tobacco use date assessed 03/03/23 03/03/23 08:38 Patient Tobacco Use Status Never used Tobacco 03/03/23 08:37 e-Cigarette/Vaping Use Never Used 03/03/23 08:37 PHQ-9: PHQ-9 Score PHQ-9: Total score 0 03/03/23 08:49 Depression Screening Interpretation: Negative Thrive Assessment: Date of Thrive Assessment Date Thrive assessed 03/03/23 03/03/23 08:44 Currently or been in a relationship where the following occur: no concerns reported Const General: cooperative and no acute distress Orientation/consciousness: patient oriented x3 HENMT Head: Yes normocephalic and Yes atraumatic Ears: TM's normal bilaterally Face and sinus: Yes sinuses nontender Mouth: oropharynx normal and moist mucous membranes Throat: Yes posterior oropharynx normal Eyes General: appearance normal, both eyes and all related structures Pupils: Equal, round and reactive pupils present EOM: EOMs intact bilaterally Neck Neck: Yes normal visual inspection, Yes full ROM and Yes no lymphadenopathy Thyroid: Thyroid normal Resp Effort & Inspection: normal respiratory effort and able to speak in complete sentences Auscultation: clear to auscultation bilaterally, no crackles, no rales, no rhonchi and no wheezes Cardio Rate: regular rate Rhythm: regular rhythm Heart sounds: S1 normal heart sound present, S2 normal heart sound present and no murmurs GI Palpation (GI): Soft to palpation, not firm, nontender, no guarding, not rigid and no hepatosplenomegaly Auscultation: normal bowel sounds General: No CVA tenderness Back/Spine/Pelvis Back: No CVA tenderness Skin Other: Left 5th toe lateral aspect callus noted, patient reports mild tenderness, skin is intact, no signs of infection noted General skin exam: no rashes or lesions noted Neuro General: patient oriented x3 Cranial nerves: Yes Equal, round and reactive pupils present Gait exam (Neuro): Normal gait present Extrem General: Yes full ROM and No edema Immunizations Boostrix Tdap Performing Provider: PAO Pop Administered by: VINICIUS Sewell on 03/03/23 08:56 Dose Route Admin Location Lot Number Expiration Date NDC Nursery Attendant 0.5 mL IM Left Deltoid [id number] 05/31/25 00615-592-21 [employer] VIS Given Date VIS Provided VIS Publication Date 03/03/23 Single Vaccine 21 Eligibility Eligibility Date Funding Source Not [facility] Eligible 03/03/23 Private Assessment and Plan Assessment & Plan (1) Screening for tuberculosis: Code(s): Z11.1 - Encounter for screening for respiratory tuberculosis (2) Foot callus: Code(s): L84 - Corns and callosities Plan: Left 5th toe lateral aspect callus noted, patient reports mild tenderness, skin is intact, no signs of infection noted Podiatry referral for an evaluation and treatment (3) Asthma: Code(s): J45.909 - Unspecified asthma, uncomplicated Qualifiers: Asthma severity: mild Asthma persistence: intermittent Asthma complication type: uncomplicated Qualified Code(s): J45.20 - Mild intermittent asthma, uncomplicated Plan: Stable Continue albuterol inhaler p.r.n. (4) Annual physical exam: Code(s): Z00.00 - Encounter for general adult medical examination without abnormal findings Plan: Repeat in 1 year Orders: Orders Vitamin B12 and Folate Today Z00.00 - Encounter for general adult medical examination without abnormal findings Comprehensive [place]. Panel Fast Today Z00.00 - Encounter for general adult medical examination without abnormal findings Lipid Panel Today Z00.00 - Encounter for general adult medical examination without abnormal findings TSH reflex Free T4 Today Z00.00 - Encounter for general adult medical examination without abnormal findings Vitamin D 25-OH Total Today Z00.00 - Encounter for general adult medical examination without abnormal findings T Spot TB Today Z11.1 - Encounter for screening for respiratory tuberculosis Mumps Virus IgG Antibody Today Z00.00 - Encounter for general adult medical examination without abnormal findings Rubeola IgG (Measles) Today Z00.00 - Encounter for general adult medical examination without abnormal findings Rubella IgG Antibody Today Z00.00 - Encounter for general adult medical examination without abnormal findings TDaP Immunization Today Z00.00 - Encounter for general adult medical examination without abnormal findings, Z23 - Encounter for immunization Referrals Podiatry Referral L84 - Corns and callosities Medications: Refilled albuterol sulfate 90 mcg/actuation (ProAir HFA) 2 puffs inhalation Q4-6H PRN 8.5 grams 0RF shortness of breath or wheezing Coding Level of Care Code Est Pt Prev Care 18-39y(57669) Diagnoses Screening for tuberculosis Z11.1 Foot callus L84 Asthma J45.20 Asthma severity: mild Asthma persistence: intermittent Asthma complication type: uncomplicated Annual physical exam Z00.00 Additional Codes JAY-7 Assessment Billing - JAY-7 Assessment Tool: JAY-7 Assessment 72129 ([id number])
== END 2023-03-03 09:17 | disposition home or self-care (01) ==
PROVIDERS: Visit Provider Nurse Practitioner Family
DX: Z11.1 Encounter for screening for respiratory tuberculosis (principal); L84 Corns and callosities; J45.20 Mild intermittent asthma, uncomplicated; Z00.00 Encounter for general adult medical examination without abnormal findings; Z23 Encounter for immunization
CPT/HCPCS: 90471; 90715; 99395

== ENCOUNTER 2023-03-20 13:27 | Outpatient (AMB) | payer OTHER, SELFPAY ==
[2023-03-20 13:38] VITALS: BP 108/60; BMI 26.7
--- NOTE | 2023-03-20 13:38 | A.OFFVIS_ITS ---
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 No complaints. Last Pap/HPV was negative in 07/07 [facility] Medical History Asthma Breast lump on left side at 5 o'clock position COVID-19 virus infection Hordeolum external Seasonal allergies Surgical History History of removal of ovarian cyst History of tubal ligation Family History Father Hypertension Mother Chronic mental illness Hypertension Diabetes Mental health disorder Maternal Aunt Ovarian cancer Son Asthma Maternal Grandmother Breast cancer Social History Housing: House Alcohol intake: current Alcohol intake frequency: holidays/special occasions only Alcohol type: wine Patient Tobacco Use Status: Never used Tobacco e-Cigarette/Vaping Use: Never Used Second Hand Smoke Exposure: No service: No Current occupational status: employed Gender identity: Female Cognitive needs: No Hearing needs: No Vision needs: No Female Reproductive History Menstrual Age of Menarche: 13 Date of last menstrual period: 03/06/23 control method: permanent sterilization Total pregnancies: 2 Full term: 2 Number of Living Children: 2 Date of last pap smear: 07/05/17 History of abnormal pap smear: No Date of Mammogram: 10/13/20 Review of Systems Const All systems reviewed & are unremarkable except as noted in HPI and below Card Reports as per HPI Resp Reports as per HPI GI Reports as per HPI and Reports no additional complaints Reports as per HPI Physical Exam Vital Signs: Last Vital Signs BP 108/60 03/20/23 13:38 BMI result Body Mass Index 26.7 Const General: cooperative, healthy appearing and comfortable Chest Chest palpation & inspection: normal inspection of the chest and normal palpation of entire chest wall Breast/axilla inspection: normal inspection of the breasts and normal inspection of the axillae Breast/axilla palpation: normal palpation of the breasts, normal palpation of the axillae and no axillary lymphadenopathy Resp Effort & Inspection: normal respiratory effort Auscultation: clear to auscultation bilaterally Percussion: percussion normal Cardio Palpation: normal PMI Rate: regular rate Rhythm: regular rhythm Heart sounds: no murmurs and no rubs Peripheral pulses: Peripheral pulses 2+ throughout GI Inspection: Yes normal to inspection Palpation (GI): Soft to palpation, nontender, no guarding, not rigid and No hepatosplenomegaly present Percussion: Yes normal to percussion Auscultation: normal bowel sounds Rectal Exam - Female: deferred General: Yes bladder normal to palpation External Female Exam: No lesion Speculum Exam - Vagina: normal appearance of the vagina, normal palpation, normal vaginal discharge and not erythematous Speculum Exam - Cervix: normal appearance of the cervix and normal palpation Bimanual exam- vagina & uterus: normal bimanual exam, normal palpation, uterine size normal, bladder normal to palpation, consistency normal and normal palpation Bimanual Exam- Adnexa, other: normal adnexae, no masses and no tenderness Assessment & Plan Assessment & Plan (1) Well woman exam: Code(s): Z01.419 - Encounter for gynecological examination (general) (routine) without abnormal findings Plan: Cotesting done. Counseled the patient about the recommended dietary allowance of 1000 mg of Calcium & 600 IU of vitamin D. The patient was instructed to perform monthly self-breast exams and to schedule an annual exam in a year; All questions answered and the patient verbalized understanding. Instructed the patient to schedule annual exam in a year Coding Level of Care Code Est Pt Prev Care 18-39y(17912) Diagnoses Well woman exam Z01.419
== END 2023-03-20 14:24 | disposition home or self-care (01) ==
LOC: HO.HWS 13:27
PROVIDERS: Visit Provider Obstetrics & Gynecology
DX: Z01.419 Encounter for gynecological examination (general) (routine) without abnormal findings (principal)
CPT/HCPCS: 99395

== ENCOUNTER 2023-03-20 13:27 | Outpatient (REF) | payer OTHER, SELFPAY ==
[2023-03-24 06:10] LABS: HPV mRNA E6/E7 rflx Not Detected (Not Detected)
== END 2023-03-20 13:28 | disposition home or self-care (01) ==
LOC: HO.LNP 13:27
PROVIDERS: Visit Provider Obstetrics & Gynecology
DX: Z01.419 Encounter for gynecological examination (general) (routine) without abnormal findings (principal)
CPT/HCPCS: 87624; 88142

== ENCOUNTER 2023-04-18 10:17 | Outpatient (REF) | payer OTHER, SELFPAY ==
[2023-04-18 11:39] LABS: Alanine Aminotransferase 7 U/L (0-31); Alkaline Phosphatase 68 U/L (39-117); Anion Gap 9 (12-20); Aspartate Amino Transferase 13 U/L (5-31); Bilirubin Total 0.2 mg/dL (0.0-1.0); Blood Urea Nitrogen 16 mg/dL (9-16); Calcium 8.6 mg/dL (8.4-10.2); Carbon Dioxide 25 mmol/L (22-29); Chloride 108 mmol/L (96-108); Cholesterol 157 mg/dL (<200); Estimated Glomerular Filt Rate > 60; Glucose Fasting 96 mg/dL (60-99); HDL Cholesterol 74 mg/dL (>40); LDL Cholesterol Calculated 68 mg/dL (<100); Potassium 3.8 mmol/L (3.3-5.1); Sodium 138 mmol/L (135-145); Total Protein 7.2 g/dL (6.5-8.0); Triglycerides 75 mg/dL (<150)
[2023-04-18 11:54] LABS: TSH reflex Free T4 1.79 uIU/mL (0.32-4.0); Vitamin D 25-OH Total 41.6 ng/mL (>30)
[2023-04-18 12:15] LABS: Folate 13.1 ng/mL (> or = 4.0); Vitamin B12 777 pg/mL (200-900)
[2023-04-20 01:19] LABS: Rubella IgG Antibody <0.90 Index
[2023-04-20 20:38] LABS: TS Negative Control Passed; TS Panel A 0; TS Panel B 0; TS Positive Control Passed; TSpotTB Negative (Negative)
== END 2023-04-18 10:18 | disposition home or self-care (01) ==
LOC: HO.LAB 10:17
PROVIDERS: PCP Nurse Practitioner Family; Visit Provider Nurse Practitioner Family
DX: Z00.00 Encounter for general adult medical examination without abnormal findings (principal); Z11.1 Encounter for screening for respiratory tuberculosis
CPT/HCPCS: 36415; 80053; 80061; 82306; 82607; 82746; 84443; 86481; 86735; 86762; 86765

== ENCOUNTER 2023-06-15 14:28 | Outpatient (REF) | payer OTHER, SELFPAY ==
[2023-06-15 18:03] LABS: CT PCR NOT DETECTED (Not Detect.); NG PCR NOT DETECTED (Not Detect.)
[2023-06-16 14:11] LABS: BV Int Neg Control Negative (Negative); BV Int Pos Control Positive (Positive)
== END 2023-06-15 14:29 | disposition home or self-care (01) ==
LOC: HO.LNP 14:28
PROVIDERS: PCP Nurse Practitioner Family; Visit Provider Advanced Practice Midwife
DX: Z11.3 Encounter for screening for infections with a predominantly sexual mode of transmission (principal); N89.8 Other specified noninflammatory disorders of vagina
CPT/HCPCS: 0353U; 87480; 87510; 87660; 99212

== ENCOUNTER 2023-06-15 14:28 | Outpatient (AMB) | payer OTHER, SELFPAY ==
[2023-06-15 14:31] VITALS: BP 106/64; BMI 27.8
--- NOTE | 2023-06-15 14:31 | MHC.OFFVIS ---
Intake Vital Signs 06/15/23 14:31 Height 5 ft 2 in Weight 152 lb BMI 27.8 BP 106/64 Intake Visit Reasons: vag odor Intake Note: has been having vaginal odor and feels uncomfortable when having sex Personal Health Coach Required: No Information Interpreted: non-clinical & clinical Plant Scientist: Plant Scientist Present (Shell) Allergies No Known Allergies Allergy (Verified 06/15/23 14:34) Medication List - Last Reconciled 06/15/23 by Marylou Hui CNM albuterol sulfate 90 mcg/actuation (ProAir HFA) 2 puffs inhalation Q4-6H PRN Is last menstrual period known: Yes Last menstrual period: 06/09/23 Post menopausal: No HPI vag odor HPI Details Patient is here because she wants to check vaginal odor she finished her. Four days ago and it has been there for few days it has fishy she has noticed it that it is mostly ever since she started being sexually active with her partner it is a new relationship of about 4 months. She is not having any a bothersome discharge. Normally when she has noticed this in the past it goes away on its own but she decided to get checked. [facility] Medical History COVID-19 virus infection Breast lump on left side at 5 o'clock position Hordeolum external Seasonal allergies Asthma Surgical History History of removal of ovarian cyst History of tubal ligation Family History Father Hypertension Mother Chronic mental illness Hypertension Diabetes Mental health disorder Maternal Aunt Ovarian cancer Son Asthma Maternal Grandmother Breast cancer Social History Housing: House Alcohol intake: current Alcohol intake frequency: holidays/special occasions only Alcohol type: wine Patient Tobacco Use Status: Never used Tobacco e-Cigarette/Vaping Use: Never Used Second Hand Smoke Exposure: No service: No Current occupational status: employed Gender identity: Female Cognitive needs: No Hearing needs: No Vision needs: No Female Reproductive History Menstrual Age of Menarche: 13 Duration of menses: 3-5 days Date of last menstrual period: 06/09/23 control method: other (tubal ligation) Total pregnancies: 2 Full term: 2 Number of Living Children: 2 Date of last pap smear: 03/21/23 (negative) Physical Exam Vital Signs: Last Vital Signs BP 106/64 06/15/23 14:31 BMI result Body Mass Index 27.8 Other: Discharge appears clear and healthy, cervix is multiparous. External Female Exam: normal external appearance and normal appearance of the urethra Speculum Exam - Vagina: normal appearance of the vagina and normal vaginal discharge Speculum Exam - Cervix: normal appearance of the cervix and Cervical os closed Assessment & Plan Assessment & Plan (1) Vaginal odor: Code(s): N89.8 - Other specified noninflammatory disorders of vagina (2) Screen for sexually transmitted diseases: Code(s): Z11.3 - Encounter for screening for infections with a predominantly sexual mode of transmission Plan ---Discussed the current research around the phenomena of bacterial vaginosis, and the many factors involved in the increase and change in the prevalence of certain bacteria in the vagina, that contribute to the clingy discharge, the fishy malodor, and the discomfort, that many women experience very frequently in their lives. Discussed the many factors that can promote it, and current thinking about best options for treatment of both the a 1 time episode, or frequently occurring episodes. Discussed the role of partner condom use. Discussed that previously, treatment was recommended for both partners, but is not currently recommended today in 2022. Discussed the testing involved. Discussed treatment options including Flagyl, metronidazole gel, and others. Discussed that condoms may be a solution.. Discussed reasons someone may choose 1 medication over another and will await the results. Orders: Orders Bacterial Vaginosis Panel Today N89.8 - Other specified noninflammatory disorders of vagina CT NG by PCR Today N89.8 - Other specified noninflammatory disorders of vagina Coding Level of Care Code Est Pt Level 3 (21102) Diagnoses Vaginal odor N89.8 Screen for sexually transmitted diseases Z11.3
== END 2023-06-15 15:19 | disposition home or self-care (01) ==
LOC: HO.HWS 14:28
PROVIDERS: PCP Nurse Practitioner Family; Visit Provider Advanced Practice Midwife
DX: N89.8 Other specified noninflammatory disorders of vagina (principal); Z11.3 Encounter for screening for infections with a predominantly sexual mode of transmission
CPT/HCPCS: 99213

== ENCOUNTER 2024-03-11 19:19 | Emergency (ER) | payer SELFPAY ==
--- NOTE | ~2024-03-11 | XR_ITS ---
EXAMINATION: XR CHEST CLINICAL INFORMATION: Cough COMPARISON: Chest radiograph 04/27/2022 TECHNIQUE: 2 views of the chest were obtained. FINDINGS: The lungs are adequately expanded. No focal consolidation. No pleural effusion, edema or pneumothorax. The cardiomediastinal silhouette is within normal limits. No acute osseous abnormality. Mild gaseous distention of bowel loops in the left upper quadrant. XR/XR chest 2V IMPRESSION: No acute pulmonary disease.
[2024-03-11 19:26] VITALS: BP 125/78; PULSE 98; RESP 18; TEMP 37.2; O2SAT 98; BMI 26.7
--- NOTE | 2024-03-11 19:27 | ED.GENADULT ---
HPI - General Adult General Chief complaint: General Medical Stated complaint: vomiting, not keeping anything down Time Seen by Provider: 03/11/24 21:45 Source: patient Mode of arrival: ambulatory Limitations: no limitations History of Present Illness ED Provider: DR. Mariscal HPI narrative: 39 year old female who is otherwise healthy came in for evaluation of sore throat, headache, atrial ear pain, generalized body ache, patient is been vomiting for the last 2 days, no recent travel, no recent exposure to sick contacts. 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 Related Data Previous Rx's ?Medication ?Instructions ?Recorded albuterol sulfate 90 mcg/actuation 2 puff inhalation Q4-6H PRN 03/03/23 aerosol inhaler (ProAir HFA) shortness of breath or wheezing #8.5 grams metronidazole 0.75 % (37.5 mg/5 1 appful vaginal BEDTIME 5 days 06/19/23 gram) vaginal gel #70 grams amoxicillin 875 mg-potassium 1 tab PO BID #14 tabs 03/11/24 clavulanate 125 mg tablet Allergies Allergy/AdvReac Type Severity Reaction Status Date / Time No Known Allergies Allergy Verified 03/11/24 19:31 Review of Systems Review of Systems: All other systems are reviewed and are negative Constitutional: Reports as per HPI and Reports no additional constitutional complaints Eyes: Reports as per HPI and Reports no additional eye complaints Reports system reviewed and no additional complaints, except as documented Cardiovascular: Reports as per HPI and Reports no additional cardiovascular complaints Respiratory: Reports as per HPI and Reports no additional respiratory complaints Gastrointestinal: Reports as per HPI and Reports no additional gastrointestinal complaints Genitourinary: Reports no additional female genitourinary complaints Musculoskeletal: Reports no additional musculoskeletal complaints Skin/Breast: Reports system reviewed and no additional complaints, except as docu Psychiatric: Reports no additional psychiatric complaints Endocrine: Reports no additional endocrine complaints Hematologic/Lymphatic: Reports no additional hematologic/lymphatic complaints Allergic/Immunologic: Reports no additional allergic/immunologic complaints Reports system reviewed and no additional complaints, except as documented and Reports Abnormal speech present [facility] Past Medical History Medical History COVID-19 virus infection Breast lump on left side at 5 o'clock position Hordeolum external Seasonal allergies Asthma Surgical History History of removal of ovarian cyst History of tubal ligation Family History Family History Father Hypertension Mother Chronic mental illness Hypertension Diabetes Mental health disorder Maternal Aunt Ovarian cancer Son Asthma Maternal Grandmother Breast cancer Social History Social History Housing: House Alcohol intake: current Alcohol intake frequency: holidays/special occasions only Alcohol type: wine Patient Tobacco Use Status: Never used Tobacco e-Cigarette/Vaping Use: Never Used Second Hand Smoke Exposure: No Advance Directives: No Advance Directives Information Provided: No Do you have a plan to hurt others: No Plan service: No Current occupational status: employed Gender identity: Female Cognitive needs: No Hearing needs: No Vision needs: No Physical Exam ED Vital Signs: Vital Signs - 24 hr 03/11/24 19:26 03/11/24 23:26 Temperature 99 F 98.9 F Pulse Rate 98 89 Respiratory Rate 18 18 Blood Pressure 125/78 128/80 Pulse Oximetry 98 97 Oxygen Delivery Method Room Air Room Air BMI result Body Mass Index 26.7 Vital signs have been reviewed and appear to be correct. Blood pressure elevated. Heart rate normal. Respiratory rate normal. Temperature normal. Oxygen saturation normal. Appearance: Alert. Oriented X3. No acute distress. Head: Normal external exam. Normocephalic. Atraumatic. No Villarreal signs noted. No raccoon eyes noted Eyes: PERRLA. EOMI. Conjunctiva and sclera normal. Eyelids normal. ENT: TM's Normal. Pharynx is erythematous with white exudate, Uvula midline. Moist mucous membranes. No trismus noted. No drooling noted. No muffled voice noted. Neck: Normal inspection. Neck supple. FROM. No adenopathy. Thyroid Normal. No meningeal signs. No neck mass noted. CVS: Normal heart rate and rhythm. Heart sound normal. No murmurs noted. Pulses normal throughout. Respiratory: No respiratory distress. Painless inspiration. Breath sounds normal. No wheezes/rales/rhonchi noted. Chest nontender. No accessory muscle usage noted or decreased air movement noted. Abdomen: Soft and nontender. Bowel sounds normal in all 4 quadrants. No distention noted. No organomegaly noted. No visible injury noted. Back: No CVA tenderness. Full range of motion noted. Skin: Skin warm and dry. Normal skin color. Normal skin turgor. No rashes/lesions/lacerations noted. Extremities: No lower extremity edema. Extremities exhibit normal range of motion. Extremities nontender. Neuro: Oriented X 3. Cranial nerve exam: II-XII are grossly intact No motor deficit. No sensory deficit. Reflexes normal. Course Course Course Narrative: This is an RME: Additional HPI, ROS, PE not included below will be deferred to primary provider. RME assessment and note performed by: Corina Sevilla PA-C This is a 63-lyro-nun-female, with a hx of asthma, presenting to the ER with complaints of cough x 1 week. Also endorsing post tussive vomiting.Reports that she was exposed to skunk feces 1 week ago and has been coughing since. Plan: CXR, viral swabs Reevaluation(s) Reevaluation #1: Sore throat, headache, bilateral ear pain a positive for strep pharyngitis. Patient feels better after IV fluid, Pepcid, Maalox. Patient received 1st dose of Augmentin in the ED will be discharged on 7 days' course of Augmentin. Time: 23:00 Medications Administered Discontinued Medications Generic Name Dose Route Start Last Admin Trade Name Freq PRN Reason Stop Dose Admin Al Hydroxide/Mg Hydroxide 30 ml 03/11/24 21:53 03/11/24 22:11 Magnesium Hydrox/Alum Hydrox 30 Ml Oral.Susp PO 03/11/24 21:54 30 ml ONCE ONE Administration Amoxicillin/Clavulanate Potassium 875 mg 03/11/24 21:53 03/11/24 22:11 Amoxicillin/Potassium Clav 875 Mg Tablet PO 03/11/24 21:54 875 mg ONCE ONE Administration Famotidine 20 mg 03/11/24 21:53 03/11/24 22:11 Famotidine/Pf 20 Mg/2 Ml Vial IVPUSH 03/11/24 21:54 20 mg ONCE ONE Administration Sodium Chloride 1,000 mls @ 999 mls/hr 03/11/24 21:53 03/11/24 22:11 Ns IV 03/11/24 22:53 999 mls/hr .Q1H1M ONE Administration Ondansetron HCl 4 mg 03/11/24 21:53 03/11/24 22:11 Ondansetron Hcl 4 Mg/2 Ml Vial IVPUSH 03/11/24 21:54 4 mg ONCE ONE Administration Medical Decision Making Differential Diagnosis Differential Diagnoses: The differential diagnosis associated with the presentation includes (Viral upper respiratory infection, strep pharyngitis, otitis media, sinusitis, pneumonia, pneumothorax, pleural effusion, related derangement, dehydration, severe anemia.) Admission/Observation Consideration of admission/observation: Escalation of care including admission/observation considered Lab Data MDM Lab Attestation statement: I reviewed the patient's lab results. 03/11/24 19:40 03/11/24 19:40 Labs: Lab Results 03/11/24 Range/Units 19:40 WBC 8.7 (4.8-10.8) X10*3/uL RBC 4.26 (4.20-5.50) X10*6/uL Hgb 12.4 (12.0-16.0) g/dl Hct 36.8 L (37.0-47.0) % MCV 86.4 (80.0-98.0) fL MCH 29.1 (27.0-33.0) pg MCHC 33.7 (31.0-35.0) g/dl RDW 13.1 (11.0-16.0) % Plt Count 309 (160-400) X10*3/uL MPV 10.9 (9.4-12.3) fL Immature Gran % (Auto) 0.2 (0.0-0.4) % Neut % (Auto) 60.5 (45-73) % Lymph % (Auto) 26.4 (20-40) % Reagan % (Auto) 9.0 (2-11) % Eos % (Auto) 3.1 (0-4) % Baso % (Auto) 0.8 (0-2) % Lymph # (Auto) 2.3 (1.2-4.9) X10*3/uL Reagan # (Auto) 0.8 (0.1-1.2) X10*3/uL Eos # (Auto) 0.3 (0.0-0.4) X10*3/uL Baso # (Auto) 0.1 (0.0-0.2) X10*3/uL Abs Immat Gran (auto) 0.02 (0.00-0.03) X10*3/uL Absolute Neuts (auto) 5.3 (2.0-8.3) x10*3/uL Absolute Nucleated RBC 0.000 (0.0-0.012) X10*3/uL Nucleated RBC % (auto) 0.0 (0.0-0.2) /100WBC Sodium 139 (135-145) mmol/L Potassium 3.7 (3.3-5.1) mmol/L Chloride 107 (96-108) mmol/L Carbon Dioxide 20 L (22-29) mmol/L Anion Gap 16 (12-20) BUN 9 (9-16) mg/dL Creatinine 0.81 (0.5-1.4) mg/dL Estim Creat Clear Calc 82.4 Estimated GFR > 60 Random Glucose 146 H (60-115) mg/dL Calcium 9.4 D (8.4-10.2) mg/dL Magnesium 2.1 (1.6-2.6) mg/dL Total Bilirubin 0.2 (0.0-1.0) mg/dL Direct Bilirubin < 0.2 (0.0-0.5) mg/dL AST 17 (5-31) U/L ALT 11 (0-31) U/L Alkaline Phosphatase 78 (39-117) U/L Total Protein 7.5 (6.5-8.0) g/dL Albumin 4.2 (3.5-5.0) g/dL Lipase 21 (8-78) U/L Influenza Type A (PCR) NEGATIVE (Negative) Influenza Type B (PCR) NEGATIVE (Negative) RSV RNA Qual (PCR) NEGATIVE (Negative) SARS-CoV-2 RNA (RT-PCR) NEGATIVE (Negative) S. pyogenes GrpA SHEY Positive A (Negative) Independent Interpretation I performed an independent interpretation of an: Plain X-Ray (Chest: No acute intrathoracic pathology.) Radiology Impression Discussion of test interpretation with radiology: I have reviewed the radiologist's reading. Discharge Plan Discharge Clinical Impression: Acute streptococcal pharyngitis Patient Disposition: Home, Self-Care Instructions: Strep Throat (ED) Prescriptions: New amoxicillin-pot clavulanate 875-125 mg tablet 1 tab PO BID Qty: 14 0RF No Action metronidazole 0.75 % (37.5mg/5 gram) gel 1 appful vaginal BEDTIME 5 Days Qty: 70 0RF albuterol sulfate [ProAir HFA] 90 mcg/actuation HFA aerosol inhaler 2 puff inhalation Q4-6H PRN (Reason: shortness of breath or wheezing) Qty: 8.5 0RF Referrals: [place] FNP [Primary Care Provider] - Stand Alone Forms: Work/School Release Print Language: Gibraltarian
[2024-03-11 19:45] LABS: MANUAL DIFF FLAG NO
[2024-03-11 19:47] LABS: Basophils Absolute Auto 0.1 X10*3/uL (0.0-0.2); Basophils Percent Auto 0.8 % (0-2); Eosinophils Absolute Auto 0.3 X10*3/uL (0.0-0.4); Eosinophils Percent Auto 3.1 % (0-4); Hematocrit 36.8 % (37.0-47.0); Hemoglobin 12.4 g/dl (12.0-16.0); Imm Gran Abs Auto 0.02 X10*3/uL (0.00-0.03); Imm Gran Pct Auto 0.2 % (0.0-0.4); Lymphocytes Absolute Auto 2.3 X10*3/uL (1.2-4.9); Lymphocytes Percent Auto 26.4 % (20-40); Mean Corpuscular HGB Conc 33.7 g/dl (31.0-35.0); Mean Corpuscular Hemoglobin 29.1 pg (27.0-33.0); Mean Corpuscular Volume 86.4 fL (80.0-98.0); Mean Platelet Volume 10.9 fL (9.4-12.3); Monocytes Absolute Auto 0.8 X10*3/uL (0.1-1.2); Neutrophils Absolute Auto 5.3 x10*3/uL (2.0-8.3); Neutrophils Percent Auto 60.5 % (45-73); Platelet Count 309 X10*3/uL (160-400); Red Blood Count 4.26 X10*6/uL (4.20-5.50); Red Cell Distribution Width 13.1 % (11.0-16.0); White Blood Count 8.7 X10*3/uL (4.8-10.8)
[2024-03-11 19:52] LABS: IDNOW Serial# 08D9AD1C; Strep A Nucleic Acid Positive (Negative)
[2024-03-11 20:00] LABS: Alanine Aminotransferase 11 U/L (0-31); Albumin Level 4.2 g/dL (3.5-5.0); Alkaline Phosphatase 78 U/L (39-117); Anion Gap 16 (12-20); Aspartate Amino Transferase 17 U/L (5-31); Bilirubin Direct < 0.2 mg/dL (0.0-0.5); Bilirubin Total 0.2 mg/dL (0.0-1.0); Blood Urea Nitrogen 9 mg/dL (9-16); Calcium 9.4 mg/dL (8.4-10.2); Carbon Dioxide 20 mmol/L (22-29); Chloride 107 mmol/L (96-108); Creatinine Clr Calc Pharmacy 82.4; Estimated Glomerular Filt Rate > 60; Glucose Random 146 mg/dL (60-115); Lipase 21 U/L (8-78); Magnesium 2.1 mg/dL (1.6-2.6); Potassium 3.7 mmol/L (3.3-5.1); Sodium 139 mmol/L (135-145); Total Protein 7.5 g/dL (6.5-8.0)
[2024-03-11 20:24] LABS: Influenza A PCR NEGATIVE (Negative); Influenza B PCR NEGATIVE (Negative); Resp Syncy Virus RNA Qual PCR NEGATIVE (Negative); SARS COV2 PCR INHOUSE NEGATIVE (Negative)
[2024-03-11] MEDS: ondansetron HCL 4 MG/2 ML VIAL IVPUSH (22:11)
[2024-03-11] MEDS: Famotidine/PF 20 MG/2 ML VIAL IVPUSH (22:11)
[2024-03-11] MEDS: 0.9 % Sodium Chloride 1,000 ML 999 ML IV (22:11)
[2024-03-11] MEDS: Amoxicillin/Potassium Clav 875 MG TABLET PO (22:11)
[2024-03-11] MEDS: Magnesium Hydrox/Alum Hydrox 30 ML ORAL.SUSP PO (22:11)
[2024-03-11 23:26] VITALS: BP 128/80; PULSE 89; RESP 18; TEMP 37.2; O2SAT 97
[2024-03-12 01:48] VITALS: BP 128/80; PULSE 89; RESP 18; TEMP 37.2; O2SAT 97
== END 2024-03-12 01:48 | disposition home or self-care (01) ==
PROVIDERS: Physician Assistant Medical; Emergency Provider Emergency Medicine; PCP Nurse Practitioner Family
DX: J02.0 Streptococcal pharyngitis (principal); J02.9 Acute pharyngitis, unspecified; R11.2 Nausea with vomiting, unspecified; M79.10 Myalgia, unspecified site; R05.9 Cough, unspecified; Z03.818 Encounter for observation for suspected exposure to other biological agents ruled out; Z79.899 Other long term (current) drug therapy
CPT/HCPCS: 0241U; 36415; 71046; 80048; 80076; 83690; 83735; 85025; 87651; 96361; 96374; 96375; 99284; J2405

== ENCOUNTER 2025-04-29 09:05 | Outpatient (AMB) | payer OTHER, SELFPAY ==
--- NOTE | 2025-04-29 09:22 | A.OFFPC_ITS ---
Vital Signs 04/29/25 09:23 Height 5 ft 2 in Weight 149 lb 8 oz BMI 27.3 BP 118/60 Blood Pressure Location Lt brachial Position Sitting Pulse 83 Pulse Source Pulse Oximeter Pulse Oximetry (%) 99 Intake Visit Reasons: ANMOL from [facility] Room Attendant Required: No Accompanied by: Self / Same As Patient Allergies No Known Allergies Allergy (Verified 04/29/25 09:38) Medication List - Last Reconciled 04/29/25 by Maggie Fraga PA-C No Known Home Meds Tobacco use date assessed: 04/29/25 Dental Screening Dental Screen Date: 04/29/25 Did you have a dental visit in the last 12 months?: No Did you have a dental problem in the last 6 months where you did not have access to dental care?: No Was dental information given to patient?: No HPI ANMOL from [facility] HPI Details 40-year-old female with past medical his tory of asthma last seen 02/2023 coming in for annual exam. Presenting with an annual wellness visit. History of asthma without current inhaler use or symptoms of dyspnea. Reports a sensation inside the right breast, managed by pressure, with no pain or lumps. The sensation happens daily and resolves with squeezing the right breast and does not occur after. She is concerned as this sensation began about one month ago. Denies any lumps, niplpe discharge or rashes on the breasts and declines breast exam today. Reports needing repetition in conversations, plans for a hearing test. Experiences bloating post meals, considering dietary adjustments. Difficulty sleeping, with ineffective use of magnesium and melatonin. Mammogram: ordered today Pap smear: 06/2025 Vaccinations: [facility] Medical History COVID-19 virus infection Breast lump on left side at 5 o'clock position Hordeolum external Seasonal allergies Asthma Surgical History History of removal of ovarian cyst History of tubal ligation Family History Father Hypertension Mother Chronic mental illness Hypertension Diabetes Mental health disorder Maternal Aunt Ovarian cancer Son Asthma Maternal Grandmother Breast cancer Social History Housing: House Alcohol intake: current Alcohol intake frequency: holidays/special occasions only Alcohol type: wine Patient Tobacco Use Status: Never used Tobacco e-Cigarette/Vaping Use: Never Used Second Hand Smoke Exposure: No service: No Current occupational status: employed Gender identity: Female Cognitive needs: No Hearing needs: No Vision needs: No Female Reproductive History Menstrual Age of Menarche: 13 Questionnaire PHQ-9 Over the last 2 weeks, how often have you been bothered by any of the following problems? 1. Little interest or pleasure in doing things: not at all 2. Feeling down, depressed, or hopeless: not at all 3. Trouble falling or staying asleep, or sleeping too much: not at all 4. Feeling tired or having little energy: not at all 5. Poor appetite or overeating: not at all 6. Feeling bad about yourself - or that you are a failure or have let yourself or your family down: not at all 7. Trouble concentrating on things, such as reading the newspaper or watching television: not at all 8. Moving or speaking so slowly that other people could have noticed. Or the opposite - being so fidgety or restless that you have been moving around a lot more than usual: not at all 9. Thoughts that you would be better off or of hurting yourself in some way: not at all Total score: 0 Depression Screening Interpretation: Negative Depression Screening Done: Yes 05862 - PHQ-9 Billing: Yes Source: Developed by Drs. Shahab Palomino, Neha Way, Pedro Francois and colleagues, with an educational rachel from [employer]. Thrive Questionnaire Date Thrive assessed: 04/29/25 I am a: Patient What is your living situation today?: I have a steady place to live Within the past 12 months, did the food you bought not last and you didn't have the money to get more?: Never true Within the past 12 months, did you worry whether your food would run out before you got money to buy more?: Never true Do you have trouble paying for medicines?: No Do you have trouble getting transportation to medical appointments?: No Do you have trouble paying your heating and electricity bill?: No Do you have trouble taking care of your child, family member or friend?: Yes Do you have trouble with day-to-day activities such as bathing, preparing meals, shopping, managing finances, etc.?: No Are you currently unemployed and looking for a job?: No Are you interested in more education?: No Please select the resources that you would like help with: None Currently or been in a relationship where the following occur: No concerns reported THRIVE Score: 0 AUDIT C Alcohol Use Questionnaire (AUDIT-C) 1. How often do you have a drink containing alcohol?: Never Total Score: 0 JAY-7 AMB Questionnaire JAY-7 Date JAY - 7 assessed: 04/29/25 Feeling nervous, anxious, or on edge: 0 = Not at all Not being able to stop or control worryin = Not at all Worrying too much about different things: 0 = Not at all Trouble relaxin = Not at all Being so restless that it is hard to sit still: 0 = Not at all Becoming easily annoyed or irritable: 0 = Not at all Feeling afraid as if something awful might happen: 0 = Not at all Total JAY-7 score (0-4 normal; 5-9 mild; 10-14 moderate; 15-21 severe): 0 Source: Developed by Drs. Shahab Palomino, Neha Way, Pedro Francois and colleagues, with an educational rachel from [employer]. JAY-7 Assessment Billing JAY-7 Assessment Tool: JAY-7 Assessment 72469 Review of Systems Const Denies body aches, Denies chills, Denies fatigue, Denies fever(s), Denies headache(s) and Denies poor appetite Eyes Reports no additional complaints ENT Denies dysphagia, Denies dizziness, Denies headache(s) and Denies odynophagia Card Denies chest pain, Denies syncope, Denies edema, Denies irregular heart rhythm, Denies lightheadedness and Denies dyspnea Resp Denies cough and Denies dyspnea GI Denies abdominal pain, Reports bloating, Denies constipation, Denies dysphagia, Denies diarrhea, Denies nausea, Denies odynophagia and Denies vomiting Reports no additional complaints Musc Reports no additional complaints and Denies abnormal gait Skin/Breast Reports system reviewed and no additional complaints, except as documented Neuro Denies abnormal gait, Denies dizziness, Denies syncope and Denies headache(s) Psych Reports no additional complaints Endo Denies fatigue Physical exam (Primary Care) Vital Signs: Last Vital Signs Pulse 83 04/29/25 09:23 BP 118/60 04/29/25 09:23 Pulse Ox 99 04/29/25 09:23 BMI result Body Mass Index 27.3 Tobacco/Smoking Status: Tobacco use Status Tobacco use date assessed 04/29/25 04/29/25 09:27 Patient Tobacco Use Status Never used Tobacco 04/29/25 09:27 e-Cigarette/Vaping Use Never Used 04/29/25 09:27 PHQ-9: PHQ-9 Score PHQ-9: Total score 0 04/29/25 09:27 Depression Screening Interpretation: Negative Thrive Assessment: Date of Thrive Assessment Date Thrive assessed 04/29/25 04/29/25 09:27 Currently or been in a relationship where the following occur: No concerns reported Const General: cooperative, healthy appearing, comfortable and no acute distress Orientation/consciousness: patient oriented x3 HENMT Head: Yes normocephalic Ears: hearing grossly normal bilaterally General nose exam: Normal external nose present Face and sinus: Yes normal facial exam and Yes sinuses nontender Mouth: Normal oral and palatal mucosa present and tongue normal Throat: Yes posterior oropharynx normal Eyes General: appearance normal, both eyes and all related structures Conjunctivae: conjunctivae normal Pupils: Equal, round and reactive pupils present EOM: EOMs intact bilaterally and No Nystagmus present Neck Neck: Yes full ROM and Yes no lymphadenopathy Chest Chest palpation & inspection: normal inspection of the chest Resp Effort & Inspection: normal respiratory effort Auscultation: clear to auscultation bilaterally, no crackles, no rales, no rhonchi and no wheezes Cardio Rate: regular rate Rhythm: regular rhythm Peripheral pulses: radial pulses present and dorsalis pedis present GI Inspection: Yes normal to inspection and No Abdominal wall edema Palpation (GI): Soft to palpation, not firm and nontender Auscultation: normal bowel sounds Rectal Exam - Female: deferred General: Yes no CVA tenderness Back/Spine/Pelvis Back: no CVA tenderness Skin General skin exam: no rashes or lesions noted Neuro General: patient oriented x3 Cranial nerves: Yes Equal, round and reactive pupils present, Yes Midline tongue present, Yes Ability to bilaterally elevate shoulders present and No Nystagmus present Gait exam (Neuro): Normal gait present Extrem General: Yes normal to inspection, Yes full ROM and No edema Psych Speech and movement: Normal speech and movement present Affect: normal affect Attitude: cooperative Insight: Good insight present (Psych) Judgement: Good judgement present (Psych) Coding Level of Care Code Est Pt Prev Care 40-64y(25317) Diagnoses Annual physical exam Z00.00 Vitamin D deficiency E55.9 Mild intermittent asthma without complication J45.20 Asthma severity: mild Asthma persistence: intermittent Asthma complication type: uncomplicated Screening for tuberculosis Z11.1 Breast pain, right N64.4 Bloating R14.0 Insomnia G47.00 Additional Codes JAY-7 Assessment Billing - JAY-7 Assessment Tool: JAY-7 Assessment 66906 ([id number]) PHQ-9 - 50157 - PHQ-9 Billing: Yes ([id number]) Assessment & Plan Assessment & Plan (1) Annual physical exam: Code(s): Z00.00 - Encounter for general adult medical examination without abnormal findings Category: Medical Plan: Patient is overdue for blood work which has been ordered. She is also due for pap smear and mammogram which has been ordered and she has appointment upcoming in June with occupational therapy technician. Healthy diet and regular exercise is encouraged. PLan to follow up in 3 months or sooner as needed. (2) Vitamin D deficiency: Code(s): E55.9 - Vitamin D deficiency, unspecified Category: Medical Plan: Plan for repeat blood work. (3) Asthma: Code(s): J45.909 - Unspecified asthma, uncomplicated Category: Medical Qualifiers: Asthma severity: mild Asthma persistence: intermittent Asthma complication type: uncomplicated Qualified Code(s): J45.20 - Mild intermittent asthma, uncomplicated Plan: The patient has a history of asthma but is currently asymptomatic and does not use inhalers. No immediate intervention is required, but monitoring for any respiratory symptoms is advised. (4) Screening for tuberculosis: Code(s): Z11.1 - Encounter for screening for respiratory tuberculosis Category: Medical Plan: T spot ordered. (5) Breast pain, right: Code(s): N64.4 - Mastodynia Category: Medical Plan: Declining breast exam today. I did inform her that without a proper exam I may not be able to accurately diagnose and treat the problem and patient understands. She is due for mammogram and plan for bilateral diagnostic to evaluate for breast discomfort and right breast US. (6) Bloating: Code(s): R14.0 - Abdominal distension (gaseous) Category: Medical Plan: The patient experiences bloating after certain meals, possibly related to dietary choices. A low FODMAP diet has been recommended to alleviate symptoms, and dietary adjustments are advised. (7) Insomnia: Code(s): G47.00 - Insomnia, unspecified Category: Medical Plan: The patient reports difficulty sleeping and has tried magnesium and melatonin without success. [id number] Benadryl is suggested as an alternative to aid sleep. She declines any other medication at this time. Plan This note was constructed using voice recognition software. While every effort has been made to ensure accuracy and skoog operator, still areas may have been included sometimes these areas may affect the content or meeting of the given symptoms. Total time spent caring for the patient today was 30 minutes. This includes time spent before the visit reviewing the chart, time spent during the visit, and time spent after the visit and documentation. Patient was informed and verbally consented to the use of an ambient scribe for clinic note documentation during this visit. Orders: Orders MMR IgG Measles Mumps Rubella Today Z00.00 - Encounter for general adult medical examination without abnormal findings T Spot TB Today Z11.1 - Encounter for screening for respiratory tuberculosis US breast RT complete Today N64.4 - Mastodynia CT NG by PCR Vag/Cerv Today Z00.00 - Encounter for general adult medical ex amination without abnormal findings Vitamin B12 and Folate Today Z13.21 - Encounter for screening for nutritional disorder Vitamin D 25-OH Total Today Z13.21 - Encounter for screening for nutritional disorder MM tomosynthesis diagnostic BI Today N64.4 - Mastodynia TSH reflex Free T4 Today Z13.29 - Encounter for screening for other suspected endocrine disorder Complete Blood Count Auto Diff Today Z13.0 - Encounter for screening for diseases of the blood and blood-forming organs and certain disorders involving the immune mechanism Comprehensive Met. Panel Today Z13.1 - Encounter for screening for diabetes mellitus Lipid Panel Today Z13.220 - Encounter for screening for lipoid disorders Referrals Speech and Hearing Referral H91.90 - Unspecified hearing loss, unspecified ear
[2025-04-29 09:23] VITALS: BP 118/60; PULSE 83; O2SAT 99; BMI 27.3
== END 2025-04-29 10:07 | disposition home or self-care (01) ==
DX: Z00.00 Encounter for general adult medical examination without abnormal findings (principal); E55.9 Vitamin D deficiency, unspecified; J45.20 Mild intermittent asthma, uncomplicated; Z11.1 Encounter for screening for respiratory tuberculosis; N64.4 Mastodynia; R14.0 Abdominal distension (gaseous); G47.00 Insomnia, unspecified

== ENCOUNTER → 2025-04-29 09:05 | Outpatient (BNVA) | payer OTHER, SELFPAY | PROVIDERS: PCP Nurse Practitioner Family | DX: Z00.00 Encounter for general adult medical examination without abnormal findings (principal); E55.9 Vitamin D deficiency, unspecified; J45.20 Mild intermittent asthma, uncomplicated; N64.4 Mastodynia; R14.0 Abdominal distension (gaseous); G47.00 Insomnia, unspecified; H91.90 Unspecified hearing loss, unspecified ear | CPT/HCPCS: 96127 ==

== ENCOUNTER 2025-05-02 10:10 | Outpatient (REF) | payer OTHER, SELFPAY ==
[2025-05-02 10:28] LABS: MANUAL DIFF FLAG NO
[2025-05-02 10:59] LABS: Hematocrit 37.6 % (37.0-47.0); Hemoglobin 12.4 g/dl (12.0-16.0); Imm Gran Abs Auto 0.03 X10*3/uL (0.00-0.03); Imm Gran Pct Auto 0.4 % (0.0-0.4); Lymphocytes Absolute Auto 1.7 X10*3/uL (1.2-4.9); Mean Corpuscular HGB Conc 33.0 g/dl (31.0-35.0); Mean Corpuscular Hemoglobin 28.9 pg (27.0-33.0); Mean Corpuscular Volume 87.6 fL (80.0-98.0); NRBC Abs Auto 0.000 X10*3/uL (0.0-0.012); NRBC Pct Auto 0.0 /100WBC (0.0-0.2); Platelet Count 297 X10*3/uL (160-400); Red Blood Count 4.29 X10*6/uL (4.20-5.50); White Blood Count 7.9 X10*3/uL (4.8-10.8)
[2025-05-02 12:06] LABS: Alanine Aminotransferase 15 U/L (0-31); Albumin Level 4.4 g/dL (3.5-5.0); Alkaline Phosphatase 64 U/L (39-117); Anion Gap 10 (12-20); Aspartate Amino Transferase 22 U/L (5-31); Blood Urea Nitrogen 14 mg/dL (9-16); Calcium 8.8 mg/dL (8.4-10.2); Carbon Dioxide 25 mmol/L (22-29); Chloride 109 mmol/L (96-108); Cholesterol 167 mg/dL (<200); Estimated Glomerular Filt Rate > 60; HDL Cholesterol 66 mg/dL (>40); Potassium 4.1 mmol/L (3.3-5.1); Sodium 140 mmol/L (135-145); Total Protein 7.3 g/dL (6.5-8.0); Triglycerides 57 mg/dL (<150)
[2025-05-02 12:23] LABS: Folate 11.1 ng/mL (> or = 4.0); Vitamin B12 490 pg/mL (200-900)
[2025-05-03 10:28] LABS: Rubeola IgG (Measles) 34.70 AU/mL
[2025-05-05 22:23] LABS: TS Negative Control Passed; TS Panel A 3; TS Panel B 4; TS Positive Control Passed; TSpotTB Negative (Negative)
== END 2025-05-02 10:11 | disposition home or self-care (01) ==
LOC: HO.LAB 10:10
DX: Z00.00 Encounter for general adult medical examination without abnormal findings (principal); Z13.21 Encounter for screening for nutritional disorder; Z13.0 Encounter for screening for diseases of the blood and blood-forming organs and certain disorders involving the immune mechanism; Z13.1 Encounter for screening for diabetes mellitus; Z13.29 Encounter for screening for other suspected endocrine disorder; Z13.220 Encounter for screening for lipoid disorders; Z11.1 Encounter for screening for respiratory tuberculosis; Z13.6 Encounter for screening for cardiovascular disorders
CPT/HCPCS: 36415; 80053; 80061; 82306; 82607; 82746; 84443; 85025; 86481; 86735; 86762; 86765

== ENCOUNTER 2025-05-06 16:12 | Outpatient (AMB) | payer OTHER, SELFPAY ==
--- NOTE | 2025-05-06 16:33 | AM.OFFVISNUR ---
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
== END 2025-05-06 16:33 | disposition home or self-care (01) ==
LOC: HO.HMCH 16:12
DX: Z23 Encounter for immunization (principal)

== ENCOUNTER → 2025-05-06 16:12 | Outpatient (BNVA) | payer OTHER, SELFPAY | DX: Z23 Encounter for immunization (principal) | CPT/HCPCS: 90471; 90707 ==

== ENCOUNTER 2025-07-01 14:24 | Outpatient (REF) | payer OTHER, SELFPAY | END 2025-07-01 14:25 | disposition home or self-care (01) | LOC: HO.MAMMO 14:24 | DX: Z13.89 Encounter for screening for other disorder (principal) ==

== ENCOUNTER 2025-07-02 09:55 | Outpatient (AMB) | payer OTHER, SELFPAY ==
--- NOTE | 2025-07-02 10:01 | A.OFFVIS_ITS ---
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 No nipple discharge. Has imaging scheduled. Regular monthly menses. Currently is not sexually active. She denies vaginal itching or irritation. STI screening offered; she accepts. She tries to eat healthy and stays active with exercise. Family history of breast and ovarian cancer. Last pap smear 2022, negative. Mammogram: scheduled. [facility] Medical History Allergic rhinitis Screening, deficiency anemia, iron Screening for diabetes mellitus Screening for hypercholesterolemia COVID-19 virus infection Breast lump on left side at 5 o'clock position Hordeolum external Seasonal allergies Asthma Surgical History History of removal of ovarian cyst History of tubal ligation Family History Father Hypertension Mother Chronic mental illness Hypertension Diabetes Mental health disorder Maternal Aunt Ovarian cancer Son Asthma Maternal Grandmother Breast cancer Paternal Aunt Breast cancer Social History Housing: House Alcohol intake: current Alcohol intake frequency: holidays/special occasions only Alcohol type: wine Patient Tobacco Use Status: Never used Tobacco e-Cigarette/Vaping Use: Never Used Second Hand Smoke Exposure: No Patient : No service: No Current occupational status: employed Gender identity: Female Cognitive needs: No Hearing needs: No Vision needs: No Female Reproductive History Menstrual Age of Menarche: 13 Duration of menses: <3 days Date of last menstrual period: 06/25/25 control method: permanent sterilization Total pregnancies: 2 Full term: 2 Number of Living Children: 2 Date of last pap smear: 03/21/23 History of abnormal pap smear: No History of STI: Yes Date of Mammogram: 03/17/25 History of abnormal mammogram: No Review of Systems Const All systems reviewed & are unremarkable except as noted in HPI and below Reports as per HPI Eyes Reports no additional complaints ENT Reports no additional complaints Card Reports no additional complaints Resp Reports no additional complaints GI Reports as per HPI and Reports no additional complaints Reports as per HPI Musc Reports no additional complaints Skin/Breast Reports as per HPI Neuro Reports no additional complaints Psych Reports no additional complaints Endo Reports no additional complaints Dany/Lymph Reports no additional complaints Aller/Immun Reports no additional complaints Physical Exam Vital Signs: Last Vital Signs BP 108/70 07/02/25 10:04 BMI result Body Mass Index 28.0 Const General: cooperative, healthy appearing, no acute distress, well developed and alert Orientation/consciousness: patient oriented x3 HEENT Head: Yes normal to inspection Eyes General: appearance normal, both eyes and all related structures Neck Neck: Yes normal visual inspection Thyroid: Thyroid normal Chest Other: Left breast slightly larger than right Chest palpation & inspection: normal inspection of the chest and other (no puckering, dimpling, peau de orange, retraction, discharge, masses) Breast/axilla inspection: normal inspection of the breasts Breast/axilla palpation: normal palpation of the breasts Resp Effort & Inspection: normal respiratory effort GI Inspection: Yes normal to inspection Palpation (GI): Soft to palpation Rectal Exam - Female: deferred General: Yes bladder normal to palpation External Female Exam: normal external appearance and normal appearance of the urethra Speculum Exam - Vagina: normal appearance of the vagina, normal palpation and normal vaginal discharge Speculum Exam - Cervix: normal appearance of the cervix and normal palpation Bimanual exam- vagina & uterus: normal bimanual exam, normal palpation, uterine size normal, bladder normal to palpation, normal palpation and non-tender Bimanual Exam- Adnexa, other: no masses Skin General skin exam: no rashes or lesions noted Rashes: no rashes Neuro General: patient oriented x3 Cognition (Neuro): normal cognition Extrem General: Yes normal to inspection Psych Attitude: cooperative Thought process: Normal thought process present Assessment & Plan Assessment & Plan (1) Encounter for well woman exam with routine gynecological exam: Code(s): Z01.419 - Encounter for gynecological examination (general) (routine) without abnormal findings Category: Medical Plan Discussed: Current recommendations for pap smears per ASCCP guidelines. BV panel and GC chlamydia obtained today for STI screening per patient request. Breast awareness and periodic breast exams. Mammogram yearly. Maintain a healthy lifestyle including a well balanced diet and routine exercise . Patient verbalizes understanding and agrees to the plan of care. She was given opportunity to ask questions and all questions were answered to the best of my ability. 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 This note is constructed using voice recognition software. While every effort has been made to ensure accuracy, community living instructor errors may have been included. Orders: Orders CT NG by PCR Vag/Cerv Today Z11.3 - Encounter for screening for infections with a predominantly sexual mode of transmission Bacterial Vaginosis Panel Today Z11.3 - Encounter for screening for infections with a predominantly sexual mode of transmission Coding Level of Care Code Est Pt Prev Care 40-64y(03275) Diagnoses Encounter for well woman exam with routine gynecological exam Z01.419
[2025-07-02 10:04] VITALS: BP 108/70; BMI 28.0
== END 2025-07-02 11:17 | disposition home or self-care (01) ==
LOC: HO.HWS 09:56
PROVIDERS: Visit Provider Advanced Practice Midwife
DX: Z01.419 Encounter for gynecological examination (general) (routine) without abnormal findings (principal)
CPT/HCPCS: 99396; 99459

== ENCOUNTER 2025-07-02 09:55 | Outpatient (REF) | payer OTHER, SELFPAY ==
[2025-07-03 04:13] LABS: Bacterial Vaginosis PCR NEGATIVE (Negative); Candida Group PCR NOT DETECTED (Not Detect); Candida glab krusei PCR NOT DETECTED (Not Detect); Trichomonas vaginalis PCR NOT DETECTED (Not Detect)
[2025-07-03 04:44] LABS: CT PCR NOT DETECTED (Not Detect.); NG PCR NOT DETECTED (Not Detect.)
== END 2025-07-02 09:56 | disposition home or self-care (01) ==
LOC: HO.LNP 09:55
PROVIDERS: Visit Provider Advanced Practice Midwife
DX: Z01.419 Encounter for gynecological examination (general) (routine) without abnormal findings (principal); Z20.2 Contact with and (suspected) exposure to infections with a predominantly sexual mode of transmission; Z98.51 Tubal ligation status
CPT/HCPCS: 81515; 87491; 87591